=== PATIENT | female | born 1935 | race Caucasian/White ===

== ENCOUNTER → 2016-10-25 | Outpatient (CLI) | payer MEDICARE ==
[2016-10-25 14:38] LABS: BLOOD GAS BASE EXCESS 12.2 mmol/L (-2-2); BLOOD GAS CARBOXYHEMOGLOBIN 1.3 % (0-4); BLOOD GAS HCO3 38 mmol/L (22-26); BLOOD GAS METHEMOGLOBIN 1.3 % (0-2); BLOOD GAS O2 HGB SATURATION 91 % (90-100); BLOOD GAS OXYGEN CONTENT 14.3 Vol % (12.0-20.0); BLOOD GAS PCO2 73 mmHg (38-42); BLOOD GAS PO2 72 mmHg (61-120); BLOOD GAS TOTAL HGB 11.2 G/DL (12.0-16.0); CRITICAL VALUE YES; DRAW SITE LT RADIAL; LITER FLOW 4 L/M; OXYGEN DEVICE NASAL CANNULA; TEMP CORR TO 98.6
[2016-10-25 14:39] LABS: NUMBER OF ARTERIAL PUNCTURES 1; STAT NO; ULNAR PULSE PRESENT
[2016-10-25 15:16] LABS: BASOPHIL % 0.3 % (0.0-2.0); EOSINOPHIL # 0.1 TH/MM3 (0-0.4); EOSINOPHIL % 1.1 % (0.0-4.0); HEMATOCRIT 36.2 % (35.0-46.0); HEMO FLAGS DIFF FINAL; LYMPH % 10.6 % (9.0-44.0); LYMPHOCYTE # 0.8 TH/MM3 (1.0-4.8); MEAN CELL VOLUME 89.7 FL (80.0-100.0); MEAN CORPUSCULAR HEMOGLOBIN 28.7 PG (27.0-34.0); MONO % 7.8 % (0.0-8.0); NEUT % 80.2 % (16.0-70.0); PLATELET COUNT 270 TH/MM3 (150-450); RED BLOOD COUNT 4.03 MIL/MM3 (4.00-5.30); RED CELL DISTRIBUTION WIDTH 14.3 % (11.6-17.2); WHITE BLOOD COUNT 7.5 TH/MM3 (4.0-11.0)
== END ==
LOC: HRSP 14:05
PROVIDERS: ATTEND Internal Medicine
DX: J84.81 Lymphangioleiomyomatosis (principal)
CPT/HCPCS: 36415; 36600; 82805; 85025

== ENCOUNTER 2017-05-30 16:59 | Inpatient (IN) | payer MEDICARE ==
[2017-05-30 17:01] VITALS: BP 156/72; PULSE 85; RESP 16; TEMP 97.7; O2SAT 94
[2017-05-30 17:51] VITALS: O2SAT 96
--- NOTE | 2017-05-30 17:54 | RADRPT ---
EXAM DATE/TIME: 05/30/2017 17:35 [facility] COMPARISON: No previous studies available for comparison. INDICATIONS : Short of breath, leg swelling. MEDICAL HISTORY : None. SURGICAL HISTORY : Arterial surgery. ENCOUNTER: Initial ACUITY: 4 - 6 days PAIN SCORE: 0/10 LOCATION: Bilateral chest FINDINGS: A single view of the chest demonstrates bilateral COPD with findings of pulmonary fibrosis right grea ter than left. Bilateral pleural effusions again, right greater than left. Heart size is normal. Dext rorotoscoliosis of the lumbar spine. CONCLUSION: 1. Plain film findings of COPD with scarring/fibrosis. 2. In addition, bibasilar airspace disease with associated effusions. Findings could represent vascul ar congestion/volume overload versus infiltrate. Don Barajas MD on May 30, 2017 at 17:50 Board Certified Radiologist. This report was verified electronically.
[2017-05-30] MEDS ORDERED: LEVOFLOXACIN 500 MG PREMIX INJ 100 ML IV ONE (18:15)
--- NOTE | 2017-05-30 18:16 | RADRPT ---
EXAM DATE/TIME: 05/30/2017 18:04 [facility] COMPARISON: No previous studies available for comparison. INDICATIONS : Increasing shortness of breath for four days RADIATION DOSE: 35.70 CTDIvol (mGy) MEDICAL HISTORY : Chronic obstructive pulmonary disease. A fib SURGICAL HISTORY : None. ENCOUNTER: Initial ACUITY: 1 day PAIN SCALE: 0/10 LOCATION: cranial TECHNIQUE: Multiple contiguous axial images were obtained of the head. Using automated exposure control and adj ustment of the mA and/or kV according to patient size, radiation dose was kept as low as reasonably a chievable to obtain optimal diagnostic quality images. DICOM format image data is available electro nically for review and comparison. FINDINGS: CEREBRUM: There is a 1.7 cm calcified meningioma in the right frontal region medially. No significant mass effe ct. POSTERIOR FOSSA: The cerebellum and brainstem are intact. The 4th ventricle is midline. The cerebellopontine angle i s unremarkable. EXTRACRANIAL: The visualized portion of the orbits is intact. SKULL: The calvaria is intact. No evidence of skull fracture. CONCLUSION: 1. 1.7 cm meningioma in the right frontal region without significant mass effect. Otherwise no acute intracranial abnormality. Jamal Chan MD on May 30, 2017 at 18:11 Board Certified Radiologist. This report was verified electronically.
[2017-05-30] MEDS ORDERED: FLEC1TAB8 PO (18:25)
[2017-05-30] MEDS ORDERED: ENAL5TAB98 PO (18:25)
[2017-05-30] MEDS ORDERED: PANT20 PO (18:25)
[2017-05-30] MEDS ORDERED: ZOCO10TA PO (18:25)
[2017-05-30] MEDS ORDERED: AMOX500C PO (18:25)
[2017-05-30] MEDS ORDERED: APIX2.5T PO (18:25)
[2017-05-30] MEDS ORDERED: ALPR.25 PO (18:25)
[2017-05-30] MEDS ORDERED: AMLO5 PO (18:25)
[2017-05-30 19:00] LABS: PROTHROMBIN TIME - PATIENT 9.8 SEC (9.8-11.6)
[2017-05-30 19:02] LABS: AUTOMATED NEUTROPHIL # 5.6 TH/MM3 (1.8-7.7); BASOPHIL % 0.3 % (0.0-2.0); EOSINOPHIL # 0.1 TH/MM3 (0-0.4); HEMATOCRIT 35.3 % (35.0-46.0); HEMOGLOBIN 11.6 GM/DL (11.6-15.3); LYMPH % 10.8 % (9.0-44.0); LYMPHOCYTE # 0.7 TH/MM3 (1.0-4.8); MEAN CELL VOLUME 88.4 FL (80.0-100.0); MEAN CORPUSCULAR HEMOGLOBIN 28.9 PG (27.0-34.0); MEAN CORPUSCULAR HGB CONC 32.7 % (32.0-36.0); MEAN PLATELET VOLUME 8.7 FL (7.0-11.0); MONOCYTE # 0.5 TH/MM3 (0-0.9); NEUT % 80.9 % (16.0-70.0); PLATELET COUNT 246 TH/MM3 (150-450); RED CELL DISTRIBUTION WIDTH 13.3 % (11.6-17.2); WHITE BLOOD COUNT 6.9 TH/MM3 (4.0-11.0)
[2017-05-30 19:06] LABS: ALBUMIN 3.6 GM/DL (3.4-5.0); ALT (GPT) 32 U/L (10-53); AST (GOT) 27 U/L (15-37); BICARBONATE 41.5 MEQ/L (21.0-32.0); BLOOD UREA NITROGEN 14 MG/DL (7-18); CALCIUM 8.7 MG/DL (8.5-10.1); CHLORIDE 80 MEQ/L (98-107); GLOMERULAR FILTRATION RATE 214 ML/MIN (>89); GLUCOSE,RANDOM 101 MG/DL (74-106); SODIUM (NA) 125 MEQ/L (136-145)
[2017-05-30 19:10] LABS: ALKALINE PHOSPHATASE 74 U/L (45-117); TOTAL BILIRUBIN ADULT 0.4 MG/DL (0.2-1.0); TOTAL PROTEIN 6.7 GM/DL (6.4-8.2); TROPONIN I LESS THAN 0.02 NG/ML (0.02-0.05)
--- NOTE | 2017-05-30 19:15 | PD ---
Physical Exam Date Seen by Provider: May 30, 2017 Time Seen by Provider: 18:00 Narrative I, Dr. Moss, have reviewed the advance practice practitioner's documentation and am in agreement, met with the patient face to face, made the diagnosis, and the medical decision making was done by me. *My assessment and Findings: Patient seen and evaluated with PA, please see PA note for further details. Here with worsening in shortness of breath, sent in by her physician. She denies any fevers or other issues. Pulmonary exam shows decreased breath sounds throughout. Laboratory Tests Test 05/30/17 17:59 05/30/17 18:23 Blood Gas HCO3 43 mmol/L (22-26) Blood Gas Base Excess 15.7 mmol/L (-2-2) Arterial Blood pH 7.31 (7.380-7.420) Arterial Blood Partial Pressure CO2 87 mmHg (38-42) Blood Gas Hemoglobin 11.2 G/DL (12.0-16.0) Neutrophils (%) (Auto) 80.9 % (16.0-70.0) Lymphocytes # (Auto) 0.7 TH/MM3 (1.0-4.8) Creatinine 0.30 MG/DL (0.50-1.00) Sodium Level 125 MEQ/L (136-145) Chloride Level 80 MEQ/L (98-107) Carbon Dioxide Level 41.5 MEQ/L (21.0-32.0) Anion Gap 4 MEQ/L (5-15) Last [address] 05/30/17 1723 Signed Impressions: Service Date/Time: Tuesday, May 30, 2017 18:04 - CONCLUSION: 1. 1.7 cm meningioma in the right frontal region without significant mass effect. Otherwise no acute intracranial abnormality. Jamal Chan MD Chest X-Ray 05/30/17 1723 Signed Impressions: Service Date/Time: Tuesday, May 30, 2017 17:35 - CONCLUSION: 1. Plain film findings of COPD with scarring/fibrosis. 2. In addition, bibasilar airspace disease with associated effusions. Findings could represent vascular congestion/volume overload versus infiltrate. Don Barajas MD Chest x-ray shows COPD with fibrosis and basilar pleural effusions. ABG shows respiratory acidosis which is fairly compensated. PH is normal. Patient is mentating normally in the ER. At this point, I am awaiting further lab work planning on admitting the patient for further evaluation of her worsening shortness of breath. Data Data Last Documented VS Vital Signs Date Time Temp Pulse Resp B/P (MAP) Pulse Ox O2 Delivery O2 Flow Rate FiO2 05/30/17 17:51 96 Nasal Cannula 5.00 05/30/17 17:01 97.7 85 16 Orders Orders Electrocardiogram (05/30/17:23) Complete Blood Count With Diff (05/30/17:23) Comprehensive Metabolic Panel (05/30/17:) Ckmb (Isoenzyme) Profile (05/30/17:) Troponin I (05/30/17:) Prothrombin Time / Inr (Pt) (05/30/17) Act Partial Throm Time (Ptt) (05/30/17:23) Blood Culture (05/30/17:23) Magnesium (Mg) (05/30/17:23) Chest, Single Ap (05/30/17:23) Ct Brain W/O Iv Contrast(Rout) (05/30/17 17:23) Iv Access Insert/Monitor (05/30/17:23) Ecg Monitoring (05/30/17:23) Oximetry (05/30/17:23) B-Type Natriuretic Peptide (05/30/17 17:32) Arterial Blood Gas (Abg) (05/30/17 ) Levofloxacin 500 Mg Premix Inj (Levaquin (05/30/17 18:15) Sputum Culture And Gram Stain (05/30/17 18:37) Labs Laboratory Tests Test 05/30/17 17:59 05/30/17 18:23 Blood Gas Puncture Site RT RADIAL Blood Gas Patient Temperature 98.6 Blood Gas HCO3 43 mmol/L Blood Gas Base Excess 15.7 mmol/L Blood Gas Oxygen Saturation 93 % Arterial Blood pH 7.31 Arterial Blood Partial Pressure CO2 87 mmHg Arterial Blood Partial Pressure O2 72 mmHG Arterial Blood Oxygen Content 14.7 Vol % Arterial Blood Carboxyhemoglobin 1.2 % Arterial Blood Methemoglobin 0.6 % Blood Gas Hemoglobin 11.2 G/DL Oxygen Delivery Device NASAL CANNULA Blood Gas Liter Flow 3 L/M White Blood Count 6.9 TH/MM3 Red Blood Count 4.00 MIL/MM3 Hemoglobin 11.6 GM/DL Hematocrit 35.3 % Mean Corpuscular Volume 88.4 FL Mean Corpuscular Hemoglobin 28.9 PG Mean Corpuscular Hemoglobin Concent 32.7 % Red Cell Distribution Width 13.3 % Platelet Count 246 TH/MM3 Mean Platelet Volume 8.7 FL Neutrophils (%) (Auto) 80.9 % Lymphocytes (%) (Auto) 10.8 % Monocytes (%) (Auto) 7.0 % Eosinophils (%) (Auto) 1.0 % Basophils (%) (Auto) 0.3 % Neutrophils # (Auto) 5.6 TH/MM3 Lymphocytes # (Auto) 0.7 TH/MM3 Monocytes # (Auto) 0.5 TH/MM3 Eosinophils # (Auto) 0.1 TH/MM3 Basophils # (Auto) 0.0 TH/MM3 CBC Comment DIFF FINAL Differential Comment Prothrombin Time 9.8 SEC Prothromb Time International Ratio 1.0 RATIO Activated Partial Thromboplast Time 24.7 SEC Blood Urea Nitrogen 14 MG/DL Creatinine 0.30 MG/DL Random Glucose 101 MG/DL Albumin 3.6 GM/DL Calcium Level 8.7 MG/DL Magnesium Level 2.0 MG/DL Aspartate Amino Transf (AST/SGOT) 27 U/L Alanine Aminotransferase (ALT/SGPT) 32 U/L Sodium Level 125 MEQ/L Potassium Level 4.4 MEQ/L Chloride Level 80 MEQ/L Carbon Dioxide Level 41.5 MEQ/L Anion Gap 4 MEQ/L Estimat Glomerular Filtration Rate 214 ML/MIN [facility] Medical Record Reviewed: Yes Supervised Visit with MARLO: Yes Diagnosis Primary Impression: Shortness of breath Admitting Information Admitting Physician Requests: it Ilya Moss MD May 30, 2017 19:15
[2017-05-30 19:18] VITALS: BP 155/72; PULSE 95; RESP 24; O2SAT 95; O2SAT 96
--- NOTE | 2017-05-30 19:37 | PD ---
HPI Chief Complaint: Respiratory Symptoms Time Seen by Provider: 17:11 Travel History International Travel<30 days: No Contact w/Intl Traveler<30days: No Traveled to known affect area: No History of Present Illness HPI 82-year-old female that presents to the ED for evaluation of shortness of breath. The patient has a history of COPD as well as TRAN disease. Per patient she's been having this disease for about 20 years and she's been worked up in multiple hospitals for this with unfortunately no ways to fix it ordered and ultimately getting a lung transplant per the report that they're given me. Patient is on 5 L of oxygen at home. Patient follows with Dr. Dobbins the ethnoarchaeology professor here in the area and was seen on Tuesday for evaluation of increased shortness of breath and at the time he started her on amoxicillin. Patient was told that if the symptoms worsen to call back. Patient called back Dr. Dobbins today because she was not feeling better and was feeling more short of breath and Dr. Dobbins wanted her to come here to get evaluated. Patient denies any fevers chills or sweats. States having some cough and shortness of breath with exertion. She also states having swelling to her lower legs. She denies having anything like this before. Denies any urinary or bowel movement issues. She does take liquids chronically for A. fib. She states that she's been also having some blurry vision and problems with her vision on and off but has been progressively gotten worse the past couple of days. She states compliance with her medications. No other medical issues. PFSH Past Medical History Hx Anticoagulant Therapy: Yes (ELOQUIS) Atrial Fibrillation: Yes Cardiovascular Problems: Yes (AFIB) Gastrointestinal Disorders: Yes (esophageal stricture) Respiratory: Yes (Lymphandioleimyomatosis) Tetanus Vaccination: < 5 Years Influenza Vaccination: Yes Past Surgical History Appendectomy: Yes Body Medical Devices: coil Hysterectomy: Yes Tonsillectomy: Yes Other Surgery: Yes (pluradesis x2, coil in abd cavity (experimental)) Social History Alcohol Use: Yes (moderately) Tobacco Use: No Substance Use: No Allergies-Medications (Allergen,Severity, Reaction): Coded Allergies: No Known Drug Allergies (Verified Allergy, Unknown, 05/30/17) Reported Meds & Prescriptions Reported Meds & Active Scripts Active Reported Protonix (Pantoprazole Sodium) Unknown Strength Tab 1 Tab PO BID Amoxicillin 500 Mg Cap 500 Mg PO TID Xanax (Alprazolam) 0.25 Mg Tab 0.25 Mg PO Q8H PRN Vasotec (Enalapril Maleate) 5 Mg Tab 5 Mg PO BID Norvasc (Amlodipine Besylate) 5 Mg Tab 5 Mg PO DAILY Flecainide (Flecainide Acetate) 50 Mg Tab 50 Mg PO BID Zocor (Simvastatin) 10 Mg Tab 10 Mg PO HS Eliquis (Apixaban) 2.5 Mg Tab 2.5 Mg PO BID Review of Systems Except as stated in HPI: all other systems reviewed are Neg Physical Exam Narrative GENERAL: SKIN: Warm and dry. HEAD: Atraumatic. Normocephalic. EYES: Pupils equal and round. No scleral icterus. No injection or drainage. ENT: No nasal bleeding or discharge. Mucous membranes pink and moist. Tongue is midline. No uvula deviation. NECK: Trachea midline. No JVD. CARDIOVASCULAR: Regular rate and rhythm. No murmurs, S3, S4 RESPIRATORY: No accessory muscle use. Rales heard in all lower lung bang. Breath sounds equal bilaterally. GASTROINTESTINAL: Abdomen soft, non-tender, nondistended. Hepatic and splenic margins not palpable. MUSCULOSKELETAL: Extremities without clubbing, cyanosis, or edema. No obvious deformities. Full range of motion of the upper and lower extremities bilaterally. 2+ pulses bilaterally. NEUROLOGICAL: Awake and alert. No obvious cranial nerve deficits. Motor grossly within normal limits. Five out of 5 muscle strength in the arms and legs. Normal speech. PSYCHIATRIC: Appropriate mood and affect; insight and judgment normal. Data Data Last Documented VS Vital Signs Date Time Temp Pulse Resp B/P (MAP) Pulse Ox O2 Delivery O2 Flow Rate FiO2 05/30/17 19:18 95 24 155/72 (99) 96 Nasal Cannula 5.00 05/30/17 17:01 97.7 Orders Orders Electrocardiogram (05/30/17:) Complete Blood Count With Diff (05/30/17 17:) Comprehensive Metabolic Panel (05/30/17 17:) Ckmb (Isoenzyme) Profile (05/30/17 17:) Troponin I (05/30/17 17:) Prothrombin Time / Inr (Pt) (05/30/17 17:) Act Partial Throm Time (Ptt) (05/30/17 17:23) Blood Culture (05/30/17 17:23) Magnesium (Mg) (05/30/17 17:23) Chest, Single Ap (05/30/17 17:23) Ct Brain W/O Iv Contrast(Rout) (05/30/17 17:23) Iv Access Insert/Monitor (05/30/17 17:23) Ecg Monitoring (05/30/17 17:23) Oximetry (05/30/17 17:23) B-Type Natriuretic Peptide (05/30/17 17:32) Arterial Blood Gas (Abg) (05/30/17 ) Levofloxacin 500 Mg Premix Inj (Levaquin (05/30/17 18:15) Sputum Culture And Gram Stain (05/30/17 18:37) Place In Observation (05/30/17 ) Code Status (05/30/17 20:02) Vital Signs (Adult) [id number].Q4H (05/30/17 20:02) Activity Oob With Assistance (05/30/17 20:02) Diet Npo (05/31/17 Breakfast) Resp Oxygen Mj C Titrat 1-4 L (05/30/17 ) Sodium Chloride 0.9% Flush (Ns Flush) (05/30/17 20:15) Sodium Chloride 0.9% Flush (Ns Flush) (05/30/17 21:00) Admit Order (Ed Use Only) (05/30/17 20:18) Labs Laboratory Tests Test 05/30/17 17:59 05/30/17 18:23 Blood Gas Puncture Site RT RADIAL Blood Gas Patient Temperature 98.6 Blood Gas HCO3 43 mmol/L Blood Gas Base Excess 15.7 mmol/L Blood Gas Oxygen Saturation 93 % Arterial Blood pH 7.31 Arterial Blood Partial Pressure CO2 87 mmHg Arterial Blood Partial Pressure O2 72 mmHG Arterial Blood Oxygen Content 14.7 Vol % Arterial Blood Carboxyhemoglobin 1.2 % Arterial Blood Methemoglobin 0.6 % Blood Gas Hemoglobin 11.2 G/DL Oxygen Delivery Device NASAL CANNULA Blood Gas Liter Flow 3 L/M White Blood Count 6.9 TH/MM3 Red Blood Count 4.00 MIL/MM3 Hemoglobin 11.6 GM/DL Hematocrit 35.3 % Mean Corpuscular Volume 88.4 FL Mean Corpuscular Hemoglobin 28.9 PG Mean Corpuscular Hemoglobin Concent 32.7 % Red Cell Distribution Width 13.3 % Platelet Count 246 TH/MM3 Mean Platelet Volume 8.7 FL Neutrophils (%) (Auto) 80.9 % Lymphocytes (%) (Auto) 10.8 % Monocytes (%) (Auto) 7.0 % Eosinophils (%) (Auto) 1.0 % Basophils (%) (Auto) 0.3 % Neutrophils # (Auto) 5.6 TH/MM3 Lymphocytes # (Auto) 0.7 TH/MM3 Monocytes # (Auto) 0.5 TH/MM3 Eosinophils # (Auto) 0.1 TH/MM3 Basophils # (Auto) 0.0 TH/MM3 CBC Comment DIFF FINAL Differential Comment Prothrombin Time 9.8 SEC Prothromb Time International Ratio 1.0 RATIO Activated Partial Thromboplast Time 24.7 SEC Blood Urea Nitrogen 14 MG/DL Creatinine 0.30 MG/DL Random Glucose 101 MG/DL Total Protein 6.7 GM/DL Albumin 3.6 GM/DL Calcium Level 8.7 MG/DL Magnesium Level 2.0 MG/DL Alkaline Phosphatase 74 U/L Aspartate Amino Transf (AST/SGOT) 27 U/L Alanine Aminotransferase (ALT/SGPT) 32 U/L Total Bilirubin 0.4 MG/DL Sodium Level 125 MEQ/L Potassium Level 4.4 MEQ/L Chloride Level 80 MEQ/L Carbon Dioxide Level 41.5 MEQ/L Anion Gap 4 MEQ/L Estimat Glomerular Filtration Rate 214 ML/MIN Total Creatine Kinase 38 U/L Troponin I LESS THAN 0.02 NG/ML MDM Medical Decision Making Medical Screen Exam Complete: Yes Emergency Medical Condition: Yes Medical Record Reviewed: Yes Interpretation(s) CBC & BMP Diagram 05/30/17 18:23 Total Protein 6.7, Albumin 3.6, Calcium Level 8.7, Magnesium Level 2.0, Alkaline Phosphatase 74, Aspartate Amino Transf (AST/SGOT) 27, Alanine Aminotransferase (ALT/SGPT) 32, Total Bilirubin 0.[address] 05/30/17 1723 Signed Impressions: Service Date/Time: Tuesday, May 30, 2017 18:04 - CONCLUSION: 1. 1.7 cm meningioma in the right frontal region without significant mass effect. Otherwise no acute intracranial abnormality. Jamal Chan MD Chest X-Ray 05/30/17 1723 Signed Impressions: Service Date/Time: Tuesday, May 30, 2017 17:35 - CONCLUSION: 1. Plain film findings of COPD with scarring/fibrosis. 2. In addition, bibasilar airspace disease with associated effusions. Findings could represent vascular congestion/volume overload versus infiltrate. Don Barajas MD Differential Diagnosis Pneumonia versus COPD versus TRAN versus failed outpatient treatment Narrative Course 82-year-old female that presents to the ED for evaluation of shortness of breath. Patient was properly examined and was found to have signs and symptoms concerning for possible infectious etiology. Patient does have significant history of autoimmune disorder causing significant lung disease that she's had for about 20 years. She follows with her ethnoarchaeology professor recommended she comes here as she is not better after taking antibiotics. I was unable to get Dr. Dobbins called me back to see what he specifically wanted. Labs and imaging were done here and did show what appears to be possible consolidations the lower lung bang. Concerning for pneumonia as patient continues to have shortness of breath. Recommendation is patient has been taking amoxicillin is not getting better is for admission for further eval. Patient agrees with this plan. Case discussed with my attending who agrees with the same. Residents agreed to admission. Diagnosis Primary Impression: Pneumonia Qualified Codes: J18.9 - Pneumonia, unspecified organism Additional Impression: Shortness of breath Admitting Information Admitting Physician Requests: Admit Ted Mendez May 30, 2017 19:37
[2017-05-30] MEDS ORDERED: SODIUM CHLORIDE 0.9% FLUSH 10 ML FLUSH IV FLUSH PRN ×2 (20:15→21:15)
--- NOTE | 2017-05-30 20:26 | HHI.HP ---
[facility] Service Family Medicine Primary Care Physician Miguel Washington M.D. Admission Diagnosis pneumonia, failed outpatient treatment, TRAN disease Diagnoses: International Travel<30 Days: No Contact w/Intl Traveler<30days: No Known Affected Area: No History of Present Illness Patient is an 82-year-old female with past history of lymphangioleiomyomatosis, chylous effusions, A. fib, hypertension presenting today with shortness of breath. She states she saw her electrostatic paint operator Dr. royal 4 days prior to admission for shortness of breath, was prescribed amoxicillin and was told to contact him if there was no improvement over several days. Over this time she had shortness of breath, mild cough, some sputum production, dizziness, "eyes jumping around" described as unfocused vision or "shaky vision." There was no improvement, she contacted her electrostatic paint operator and he advised her to go to the ER. The patient states her shaky vision is typically present when her carbon dioxide becomes too high, which has happened in the past. No headache, diplopia , localized weakness. She states her TRAN typically is asymptomatic, however every now and then she has cold-like symptoms. Occasionally she states she coughs up something that looks like "wet popcorn." No blood in her sputum, purulent smell. She reports she's had insomnia for years, currently treated with Xanax at bedtime. Denies nausea, vomiting, fever, chills, abdominal pain, chest pain, arm/jaw pain. Reports she is typically on 4 L/min O2 during the day , 2-3 L/m at night. Review of Systems Constitutional: DENIES: Fatigue, Fever, Chills Endocrine: COMPLAINS OF: Polydipsia, DENIES: Polyuria Eyes: DENIES: Blurred vision, Diplopia, Eye inflammation, Eye pain, Vision loss , Photosensitivity, Double Vision Ears, nose, mouth, throat: COMPLAINS OF: Vertigo, Nasal discharge, Running Nose , DENIES: Tinnitus, Hearing loss, Throat pain, Hoarseness, Ear Pain, Epistaxis, Sinus Pain Respiratory: COMPLAINS OF: Cough, Sputum production, Shortness of breath, DENIES: Snoring, Wheezing, Hemoptysis Cardiovascular: DENIES: Chest pain, Palpitations, Syncope, Dyspnea on Exertion Gastrointestinal: DENIES: Abdominal pain, Black stools, Constipation, Diarrhea , Nausea, Vomiting Genitourinary: DENIES: Hematuria, Dysuria Musculoskeletal: COMPLAINS OF: Joint pain (Arthritis "everywhere"), Stiffness, DENIES: Muscle aches, Back pain, Neck pain Integumentary: DENIES: Abnormal pigmentation, Rash Hematologic/lymphatic: DENIES: Bruising, Lymphadenopathy Immunologic/allergic: DENIES: Eczema, Urticaria Neurologic: DENIES: Abnormal gait, Headache, Localized weakness, Paresthesias Psychiatric: DENIES: Anxiety, Suicidal Ideation, Homicidal Ideation Past Family Social History Past Medical History Afib TRAN GE stricture Meningioma anterior, frontal, 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 HTN HLD Past Surgical History Hysterectomy 1985 Pleurodesis of b/l lungs 1997 Coil in thoracic duct Allergies: Coded Allergies: No Known Drug Allergies (Verified Allergy, Unknown, 05/30/17) Family History Mother: at 63, liver and pancreas cancer Father: at 77, emphysema Daughter: healthy Social History EtOH: Occasionally Tobacco: none Drugs: None Flu, PNA vaccine in fall Physical Exam Vital Signs Vital Signs Date Time Temp Pulse Resp B/P (MAP) Pulse Ox O2 Delivery O2 Flow Rate FiO2 05/30/17 19:18 95 24 155/72 (99) 96 Nasal Cannula 5.00 05/30/17 17:51 96 Nasal Cannula 5.00 05/30/17 17:01 97.7 85 16 156/72 (100) 94 Nasal Cannula 4.00 Physical Exam GENERAL: This is a well-nourished, well-developed patient, in no apparent distress. SKIN: No rashes, ecchymoses or lesions. Cool and dry. HEAD: Atraumatic. Normocephalic. No temporal or scalp tenderness. EYES: Pupils equal round and reactive. Extraocular motions intact. No scleral icterus. No injection or drainage. ENT: Nose without bleeding, purulent drainage or septal hematoma. Throat without erythema, tonsillar hypertrophy or exudate. Uvula midline. Airway patent. NECK: Trachea midline. No JVD or lymphadenopathy. Supple, nontender, no meningeal signs. CARDIOVASCULAR: Regular rate and rhythm without murmurs, gallops, or rubs. RESPIRATORY: Breath sounds equal bilaterally. No wheezes, or rhonchi. Crackles in bases. Dullness to percussion at bases. GASTROINTESTINAL: Abdomen soft, non-tender, nondistended. No hepato-splenomegaly , or palpable masses. No guarding. MUSCULOSKELETAL: Extremities without clubbing, cyanosis. Pedal Swelling. No joint tenderness, effusion, or edema noted. No calf tenderness. NEUROLOGICAL: Awake and alert. Cranial nerves II through XII intact. Motor and sensory grossly within normal limits. Five out of 5 muscle strength in all muscle groups. Normal speech. Laboratory Laboratory Tests Test 05/30/17 17:59 05/30/17 18:23 Blood Gas Puncture Site RT RADIAL Blood Gas Patient Temperature 98.6 Blood Gas HCO3 43 Blood Gas Base Excess 15.7 Blood Gas Oxygen Saturation 93 Arterial Blood pH 7.31 Arterial Blood Partial Pressure CO2 87 Arterial Blood Partial Pressure O2 72 Arterial Blood Oxygen Content 14.7 Arterial Blood Carboxyhemoglobin 1.2 Arterial Blood Methemoglobin 0.6 Blood Gas Hemoglobin 11.2 Oxygen Delivery Device NASAL CANNULA Blood Gas Liter Flow 3 White Blood Count 6.9 Red Blood Count 4.00 Hemoglobin 11.6 Hematocrit 35.3 Mean Corpuscular Volume 88.4 Mean Corpuscular Hemoglobin 28.9 Mean Corpuscular Hemoglobin Concent 32.7 Red Cell Distribution Width 13.3 Platelet Count 246 Mean Platelet Volume 8.7 Neutrophils (%) (Auto) 80.9 Lymphocytes (%) (Auto) 10.8 Monocytes (%) (Auto) 7.0 Eosinophils (%) (Auto) 1.0 Basophils (%) (Auto) 0.3 Neutrophils # (Auto) 5.6 Lymphocytes # (Auto) 0.7 Monocytes # (Auto) 0.5 Eosinophils # (Auto) 0.1 Basophils # (Auto) 0.0 CBC Comment DIFF FINAL Differential Comment Prothrombin Time 9.8 Prothromb Time International Ratio 1.0 Activated Partial Thromboplast Time 24.7 Blood Urea Nitrogen 14 Creatinine 0.30 Random Glucose 101 Total Protein 6.7 Albumin 3.6 Calcium Level 8.7 Magnesium Level 2.0 Alkaline Phosphatase 74 Aspartate Amino Transf (AST/SGOT) 27 Alanine Aminotransferase (ALT/SGPT) 32 Total Bilirubin 0.4 Sodium Level 125 Potassium Level 4.4 Chloride Level 80 Carbon Dioxide Level 41.5 Anion Gap 4 Estimat Glomerular Filtration Rate 214 Total Creatine Kinase 38 Troponin I LESS THAN 0.02 Date/Time Source Procedure Growth Status 05/30/17 18:28 Blood Peripheral Aerobic Blood Culture Pending Received 05/30/17 18:28 Blood Peripheral Anaerobic Blood Culture Pending Received Result Diagram: 05/30/17 1823 05/30/17 1823 Imaging Last Impressions Head CT 05/30/17 172 Signed Impressions: Service Date/Time: Tuesday, May 30, 2017 18:04 - CONCLUSION: 1. 1.7 cm meningioma in the right frontal region without significant mass effect. Otherwise no acute intracranial abnormality. Jamal Chan MD Chest X-Ray 05/30/171722 Signed Impressions: Service Date/Time: Tuesday, May 30, 2017 17:35 - CONCLUSION: 1. Plain film findings of COPD with scarring/fibrosis. 2. In addition, bibasilar airspace disease with associated effusions. Findings could represent vascular congestion/volume overload versus infiltrate. Don Barajas MD [place] VTE Risk Assessment Caprini VTE Risk Assessment: Mod/High Risk (score >= 2) VTE Pharm Contraindication: on home anticoagulation Assessment and Plan Assessment and Plan Patient is an 82-year-old female with past history of lymphangioleiomyomatosis, chylous effusions, A. fib, hypertension who presented with shortness of breath. Hyponatremia, airspace disease noted on chest x-ray above. Problem List: (1) Pneumonia ICD Codes: J18.9 - Pneumonia, unspecified organism Status: Acute Plan: 82-year-old female with past history of lymphangioleiomyomatosis, chylous effusions, A. fib, hypertension who presented with shortness of breath. Patient seen her electrostatic paint operator and was prescribed amoxicillin 4 days prior to admission, had not improved over that time and was advised by her pulmonary disease to go to the ED. At this time difficult to rule out pneumonia due to patient's rare pulmonary disorder. Has not been the hospital or a penitentiary the past couple months. Patient reports she's on BiPAP at home. Further reports her O2 saturation is typically in the low 90s to high 80s. We will be bringing in her own home BiPAP and using it settings. -Follow up blood culture, sputum culture -Rocephin 1000 mg every 2-4 hours -Zithromax and 500 mg by mouth daily -BiPAP per home settings -Follow up recommendations from patient's electrostatic paint operator, Dr. royal (2) Hyponatremia ICD Codes: E87.1 - Hypo-osmolality and hyponatremia Plan: Hyponatremia 125. Appears euvolemic. Pedal swelling. CXR with findings that could represent vascular congestion. -50 ml 3% NS bolus -F/U BMP following bolus -F/U UA/osmolality/sodium (3) Afib ICD Codes: I48.91 - Unspecified atrial fibrillation Plan: History of A. fib, reports currently well-controlled -Continue home medications -Flecainide 50 mg by mouth twice a day -Eliquis 2.5 mg by mouth twice a day (4) Hypertension ICD Codes: I10 - Essential (primary) hypertension Plan: History of hypertension -Continue home medications enalapril 5 mg by mouth twice a day, Norvasc 5 mg by mouth daily (5) HLD (hyperlipidemia) ICD Codes: E78.5 - Hyperlipidemia, unspecified Plan: Continue home medication -pravastatin 20 mg hs (6) FEN Plan: Fluids: -Tolerating PO Electrolytes: -Hyponatremia plan above, monitor and replete electrolytes as needed Nutrition: -Regular Diet PPX Currently on [facility] Physician Certification 2 Midnight Certification Type: Admission for Inpatient Services Order for Inpatient Services The services are ordered in accordance with Medicare regulations or non- Medicare payer requirements, as applicable. In the case of services not specified as inpatient-only, they are appropriately provided as inpatient services in accordance with the 2-midnight benchmark. Estimated LOS (days): 2 2 days is the estimated time the patient will need to remain in the hospital, assuming treatment plan goals are met and no additional complications. Post-Hospital Plan: Home Problem Qualifiers (1) Pneumonia: Qualified Codes: J18.9 - Pneumonia, unspecified organism Milton Bella MD R1 May 30, 2017 20:26
[2017-05-30] MEDS ORDERED: SODIUM CHLORIDE 0.9% FLUSH 10 ML FLUSH IV FLUSH SCH (21:00)
[2017-05-30] MEDS ORDERED: ONDANSETRON HCL 4 MG/2 ML VIAL IV PUSH PRN (21:15)
[2017-05-30 21:30] VITALS: O2SAT 96
[2017-05-30] MEDS: cefTRIAXone INJ 1,000 MG in SODIUM CHLORIDE 0.9% INJ 100 ML IV SCH (22:07)
[2017-05-30] MEDS ORDERED: TEMAZEPAM 15 MG CAP PO PRN (22:30)
[2017-05-31] VITALS (7 sets, daily range): BP systolic 116–152; BP diastolic 57–75; PULSE 90–97; RESP 18–20; TEMP 97.4–98.5; O2SAT 94–99
[2017-05-31] MEDS ORDERED: [UNRECOGNIZED DRUG - OTHER] IV ONE (00:15)
[2017-05-31 01:59] LABS: HEMATOCRIT 35.6 % (35.0-46.0); HEMOGLOBIN 11.7 GM/DL (11.6-15.3); MEAN CORPUSCULAR HEMOGLOBIN 29.2 PG (27.0-34.0); MEAN CORPUSCULAR HGB CONC 32.8 % (32.0-36.0); MEAN PLATELET VOLUME 8.3 FL (7.0-11.0); PLATELET COUNT 272 TH/MM3 (150-450); RED CELL DISTRIBUTION WIDTH 13.3 % (11.6-17.2); WHITE BLOOD COUNT 7.5 TH/MM3 (4.0-11.0)
[2017-05-31 02:21] LABS: BICARBONATE 43.3 MEQ/L (21.0-32.0); CALCIUM 8.7 MG/DL (8.5-10.1); CREATININE 0.25 MG/DL (0.50-1.00)
--- NOTE | 2017-05-31 07:26 | HHI.FPPN ---
Subjective Remarks Ines Arroyo is an 82yo lady with medical history complicated by lymphangioleiomyomatosis and chylous effusions admitted for worsening SOB. She had been treated as an outpatient with amoxicillin x 4 days but continued to worsen. For further details, please see resident H&P dated 05/30/17. Overnight, she has required up to 5lpm by nasal cannula; she uses oxygen and BiPAP at home. This morning, she feels her breathing is about the same as last night. She denies any new concerns. ROS: Per resident H&P dated 05/30/17. +SOB, +cough. + vision changes (improving) . No fevers. All other systems reviewed are negative. PMH/PSxH/SocHx/FamHx: Per resident H&P dated 05/30/17. Significant for: lymphangioleiomyomatosis and chylous effusions; a fib, HTN, hyperlipidemia, and known meningioma. H/O pleurodesis of both lungs in 1997. Mother with liver and pancreatic CA; father from emphysema. No tobacco or recreational drug use. Objective Vitals Vital Signs Date Time Temp Pulse Resp B/P (MAP) Pulse Ox O2 Delivery O2 Flow Rate FiO2 05/31/17 05:22 97.4 92 18 152/72 (98) 97 05/31/17 01:30 96 Nasal Cannula 3.00 Bi-Pap 05/31/17 01:25 97.8 96 18 149/75 (99) 94 05/31/17 01:18 96 Nasal Cannula 3.00 Bi-Pap 05/30/17 23:41 95 Nasal Cannula 3.00 Bi-Pap 05/30/17 22:56 05/30/17 21:30 96 Nasal Cannula 4.50 05/30/17 19:18 95 24 155/72 (99) 96 Nasal Cannula 5.00 05/30/17 17:51 96 Nasal Cannula 5.00 05/30/17 17:01 97.7 85 16 156/72 (100) 94 Nasal Cannula 4.00 I/O 05/30/17 05/30/17 05/30/17 05/31/17 05/31/17 05/31/17 07:00 15:00 23:00 07:00 15:00 23:00 Intake Total 320 ml Balance 320 ml Intake Oral 320 ml Result Diagram: 05/31/17 0141 05/31/17 0141 Objective Remarks Per resident H&P dated 05/30/17. Significant for: Crackles at bases. Talks in complete sentences. A/P Assessment and Plan 82yo lady with complicated medical history admitted for pneumonia, having FAILED OUTPATIENT TREATMENT with amoxicillin. Discharge Planning Anticipate discharge in 1-2 days, pending improvement in respiratory status, especially pCO2. Attending Attestation The patient has been seen and examined. The chart and all resident notes have been reviewed. I agree that inpatient care is appropriate and that a two midnight stay is expected for the reasons documented in the resident history and physical. I have discussed this with the resident and certify the resident s order for inpatient admission. Patient seen, examined, and discussed with resident team. Problem List: (1) Pneumonia ICD Codes: J18.9 - Pneumonia, unspecified organism Status: Acute Plan: Failed outpatient treatment with amoxicillin. Will continue coverage for community acquired pneumonia, with Rocephin and azithromycin as started at admission. Continue home BiPAP, oxygen supplementation. Plan to recheck ABG, per pulmonology recs, in 1-2 days to ensure pt's pCO2 improves. Case discussed with Dr. Dobbins, patient's quality assurance technician. (2) Hyponatremia ICD Codes: E87.1 - Hypo-osmolality and hyponatremia Status: Acute Plan: Hyponatremia 125. Appears euvolemic. Pedal swelling. CXR with findings that could represent vascular congestion. -Received 50 ml 3% NS bolus at admission. -F/U BMP following bolus -F/U UA/osmolality/sodium. Consider dehydration vs SIADH vs other. Recheck BMP in the afternoon to ensure stability of sodium. 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 Appreciate further recs. Plan of care as above per pneumonia. (4) Afib ICD Codes: I48.91 - Unspecified atrial fibrillation Status: Chronic Plan: History of A. fib, reports currently well-controlled. -Continue home medications -Flecainide 50 mg by mouth twice a day -Eliquis 2.5 mg by mouth twice a day (5) Hypertension ICD Codes: I10 - Essential (primary) hypertension Status: Chronic Plan: -Continue home medications enalapril 5 mg by mouth twice a day, Norvasc 5 mg by mouth daily (6) HLD (hyperlipidemia) ICD Codes: E78.5 - Hyperlipidemia, unspecified Status: Chronic Plan: Continue home medication. -pravastatin 20 mg hs Problem Qualifiers (1) Pneumonia: Qualified Codes: J18.9 - Pneumonia, unspecified organism (2) Afib: Qualified Codes: I48.2 - Chronic atrial fibrillation (3) Hypertension: Qualified Codes: I10 - Essential (primary) hypertension (4) HLD (hyperlipidemia): Qualified Codes: E78.2 - Mixed hyperlipidemia Aaliyah Couch MD May 31, 2017 07:26
[2017-05-31] MEDS: APIXABAN 2.5 MG TABLET PO SCH ×2 (09:17→21:59)
[2017-05-31] MEDS: FLECAINIDE ACETATE 100 MG TAB PO SCH ×2 (09:17→21:58)
[2017-05-31] MEDS: ENALAPRIL MALEATE 5 MG TAB PO SCH ×2 (09:17→21:58)
[2017-05-31] MEDS: AZITHROMYCIN 250 MG TAB PO SCH (09:18)
[2017-05-31] MEDS: amLODIPine BESYLATE 5 MG TAB PO SCH (09:18)
[2017-05-31] MEDS: SODIUM CHLORIDE 0.9% FLUSH 10 ML FLUSH IV FLUSH SCH ×2 (09:19→21:59)
--- NOTE | 2017-05-31 11:37 | MB ---
cc: Arpita HICKEY DATE OF CONSULTATION: 05/31/2017 REASON FOR CONSULTATION: Miss Arroyo is a 82-year-old white female with a history of lymph angio leiomyoma ptosis (TRAN) I have followed her now since 1998 and she actually has a specialist at the [facility] as well. Dr. Ochoa. She has been remarkably stable over the last nearly 20 years. Prior to meeting me she had problems with recurrent chylous effusion. She had talc pleurodesis and those have not recurred. She also had plodding of her thoracic duct at some point. In any event she had a serious respiratory illness last year and was in [place] at that time was admitted to [facility]. Since then she has been stable but in a bit of a gradual decline. Her pulmonary functions have not been done routinely but the last FEV-1 was in 2013 at which time was 29%. She has also had very gradual rise in her CO2 last check was in December 2016 at which time a pCO2 was 65 with a pH of 7.37. Her pO2 on 3 liters 64 liters with 78. She was also seen at the [facility] recently in the pulmonary hypertension clinic by Dr. Garcia because her pulmonary artery pressures have been gradually rising. This is felt to be due to the underlying hypoxemia and chronic lung disease but she was thoroughly reviewed and was not recommended that she use any of the pulmonary hypertension drugs as they might only make things worse. She is on BiPap at night chronically for chronic respiratory failure with CO2 elevation and she uses oxygen continuously at about 4 liters. She has been on doxycycline every day or every other day for many years as a treatment for her Bui. She has also recently developed atrial fibrillation. She is on Eliquis and flecainide. No history of ischemic heart disease or congestive heart failure. I saw on the office on May 26 she was complaining of cough and congestion for a few weeks. She had been treated as an outpatient by her primary physician with antibiotics and felt a little better but not normal. I did a sputum culture put her on Amoxil and the sputum culture was normal ai but yesterday her called me and she was more confused. I suspected her CO2 might be rising and advised her to go to the emergency room. On presentation in the emergency room she was awake but a bit confused and initial blood gas on 3 liters her pO2 was 72 with a pH 7.31 and a pCO2 of 87. Chest x-ray revealed chronic changes at the bases could not rule out superimposed infiltrates because she has chronic scarring particularly at the right but she was admitted for acute on chronic respiratory failure and possible pneumonia. Additional past history pancreatitis pulmonary hypertension, new onset atrial fibrillation a distant history of hypertension and a meningioma which was also recognized on our CT scan on admission. ALLERGIES None. MEDICATIONS Reviewed in the EMR as an outpatient. She is on the medicines noted above, along with 1. Amlodipine p.r.n. 2. Xanax. 3. Simvastatin 4. Multiple vitamin. SOCIAL HISTORY She is living with , Jarad. Occasional social alcohol not to excess. Never smoked. He ran a [employer] store for years but is retired now. FAMILY HISTORY Father had COPD. Mother of liver cancer. No history of TRAN in the family. REVIEW OF SYSTEMS Review of systems other than that noted above she has had no nausea, vomiting, abdominal pain or change in bowel habits. No diarrhea. She has had some increased edema in her ankles which is new, no pain in her legs. No significant fever. No night sweats. PHYSICAL EXAMINATION: IN GENERAL: Physical exam she is awake and alert, looks exhausted 98 degrees 120/64, pulse 100 irregular, respirations 18-22, O2 sat 95% on 4 liters. HEAD, EYES, EARS, NOSE, AND THROAT: Sclerae anicteric. Mucous membranes are moist. NECK: Neck veins are flat. No palpable adenopathy in the neck. LUNGS: a few basilar rales. No moist congestion or rhonchi. No wheezes. HEART: Irregular rhythm about 100. EXTREMITIES: 1+ ankle edema bilateral. No calf tenderness. ASSESSMENT AND PLAN: Ines has had a recent URI with an exacerbation of her underlying chronic lung disease. CO2 was raising significantly from previous overweight use the BiPap continuously at present going to put her on Atrovent neb's to help clear any congestion and monitor her over the next 24-48 hours with a repeat blood gas to see if that CO2 is coming down. She has been started on Rocephin and Zithromax. I have asked the resident service to send another sputum and will check her labs. Further diagnostic and/or therapeutic depend on her ongoing clinical course and response to therapy. R. MD Leela Veras /9:20 AM /9:54 AM
[2017-05-31 13:50] LABS: BICARBONATE 42.1 MEQ/L (21.0-32.0); CALCIUM 8.3 MG/DL (8.5-10.1); CREATININE 0.29 MG/DL (0.50-1.00)
[2017-05-31 17:26] LABS: BACTERIA, URINE OCC /hpf; BILIRUBIN, URINE NEG (NEG); BLOOD, URINE MOD (NEG); GLUCOSE,URINE NEG (NEG); KETONE, URINE NEG (NEG); MUCUS URINE FEW /lpf (OCC); NITRITE,URINE NEG (NEG); SQUAMOUS EPITHELIAL CELL URINE 2 /hpf (0-5); URINE COLOR YELLOW (YELLW/STRAW); URINE LEUKOCYTE ESTERASE SMALL (NEG)
[2017-05-31 18:07] LABS: SODIUM,RANDOM URINE 30 MEQ/L
[2017-05-31 18:18] LABS: OSMOLALITY,URINE 500 MOSM/KG (300-1300)
--- NOTE | 2017-05-31 19:23 | EKG ---
Date Performed: 05/30/2017 Time Performed: 17:39:04 PTAGE: 82 years EKG: Sinus rhythm POSSIBLE LEFT ATRIAL ENLARGEMENT POSSIBLE LEFT VENTRICULAR HYPERTROPHY ABNORMAL ECG Since the prior tracing, there has been no significant change PREVIOUS TRACING : 08/14/2001 16.20 DOCTOR: Aristides Gao Interpretating Date/Time 05/31/2017 19:22:39
[2017-05-31] MEDS: RESP: IPRATROPIUM 0.5 MG/2.5 ML NEB NEB SCH (19:47)
[2017-05-31] MEDS: PRAVASTATIN SOD 20 MG TAB PO SCH (21:58)
[2017-05-31] MEDS: cefTRIAXone INJ 1,000 MG in SODIUM CHLORIDE 0.9% INJ 100 ML IV SCH (21:59)
[2017-06-01] VITALS (12 sets, daily range): BP systolic 114–132; BP diastolic 56–72; PULSE 79–97; RESP 18–25; TEMP 97.7–98.8; O2SAT 90–97
[2017-06-01] MEDS: RESP: IPRATROPIUM 0.5 MG/2.5 ML NEB NEB SCH ×3 (07:52→19:49)
[2017-06-01] MEDS: FLECAINIDE ACETATE 100 MG TAB PO SCH ×2 (09:44→20:26)
[2017-06-01] MEDS: AZITHROMYCIN 250 MG TAB PO SCH (09:45)
[2017-06-01] MEDS: amLODIPine BESYLATE 5 MG TAB PO SCH (09:45)
[2017-06-01] MEDS: ENALAPRIL MALEATE 5 MG TAB PO SCH ×2 (09:45→20:26)
[2017-06-01] MEDS: APIXABAN 2.5 MG TABLET PO SCH ×2 (09:46→20:30)
[2017-06-01] MEDS: SODIUM CHLORIDE 0.9% FLUSH 10 ML FLUSH IV FLUSH SCH ×2 (09:47→21:00)
--- NOTE | 2017-06-01 10:12 | HHI.FPPN ---
Subjective Remarks No acute events overnight. Patient states that her breathing is the same as yesterday. No increased work of breathing or increase in shortness of breath. Otherwise she has no complaints. ABG this morning showed an increase in PCO2, Dr. Dobbins was made aware and will give further recommendations this morning. (Vel Johnston MD R1) Objective Vitals Vital Signs Date Time Temp Pulse Resp B/P (MAP) Pulse Ox O2 Delivery O2 Flow Rate FiO2 06/01/17 07:49 97.7 96 20 118/59 (78) 95 06/01/17 04:03 96 Nasal Cannula 3.00 Bi-Pap 06/01/17 04:00 98.0 79 18 114/61 (78) 94 06/01/17 02:00 96 Nasal Cannula 3.00 Bi-Pap 06/01/17 00:00 96 Nasal Cannula 3.00 Bi-Pap 06/01/17 00:00 98.3 89 18 132/68 (89) 97 05/31/17 20:00 96 Nasal Cannula 3.00 Bi-Pap 05/31/17 20:00 98.0 97 18 146/70 (95) 97 05/31/17 16:43 97.8 97 20 116/57 (76) 96 05/31/17 12:26 98.5 94 20 140/64 (89) 99 I/O 05/31/17 05/31/17 05/31/17 06/01/17 06/01/17 06/01/17 07:00 15:00 23:00 07:00 15:00 23:00 # Voids 2 (Vel Johnston MD R1) Result Diagram: 05/31/17 0141 05/31/172012 Objective Remarks GENERAL: Well-nourished, well-developed patient sitting upright in bed with BiPAP mask, nasal cannula in place. Speaking in full sentences SKIN: Warm and dry. No rash. EYES: No scleral icterus. No injection or drainage. PERRLA. EOMI. HENT: Normocephalic. Atraumatic. MMM. NECK: No visible JVD or lymphadenopathy. CARDIOVASCULAR: Warm and well perfused. Grade 2-3 systolic murmur appreciated throughout. RESPIRATORY: Supraclavicular retractions appreciated. Coarse breath sounds appreciated in the bibasilar lung bang GASTROINTESTINAL: Abdomen nondistended, nontender. MUSCULOSKELETAL: Strength grossly WNL. BACK: Without obvious deformity. NEURO/PSYCH: Afocal. Awake, alert, and oriented x3. 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 Being treated with Rocephin and azithromycin. Pulmonology consulted. Patient on BiPAP Elevated PCO2 on initial ABG, continued to increase the morning of 06/01. Repeat ABG later this morning and Dr. Dobbins will give further recommendations on breathing treatments Discharge Planning Anticipate discharge in 1-2 days, pending improvement in respiratory status, especially pCO2. (Vel Johnston MD R1) Attending Attestation Patient seen and examined at 0730 on rounds; discussed with resident team. I agree with assessment and management as documented and discussed with me. Pt reports breathing is the same. She denies any vision changes. pCO2 is increased today - advised pt to wear BiPAP as much as possible. Appreciate Dr Dobbins. (Aaliyah Couch MD) Problem List: (1) Pneumonia ICD Codes: J18.9 - Pneumonia, unspecified organism Status: Acute Plan: Failed outpatient treatment with amoxicillin. Will continue coverage for community acquired pneumonia, with Rocephin and azithromycin as started at admission (05/31). Continue home BiPAP, oxygen supplementation at 3 L nasal cannula. Repeat ABG on the morning of 06/01 with elevated pCO2 (87 -> 101) Dr. Dobbins recommending repeat ABG later this morning, will give recommendations on breathing treatments pending this (2) Hyponatremia ICD Codes: E87.1 - Hypo-osmolality and hyponatremia Status: Acute Plan: Hyponatremia 125 on admission. Appears euvolemic. Pedal swelling. CXR with findings that could represent vascular congestion. Asymptomatic -Received 50 ml 3% NS bolus at admission. -Sodium improved to 127 after bolus, has been stable at 126-127 on 05/31 -Urine osmolality 500, urine sodium 30. -Follow up a.m. labs -Fluid restrictions to 1500 milliliter per day, will follow up BMP in the a.m. 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 Appreciate further recs. Plan of care as above per pneumonia. (4) Afib ICD Codes: I48.91 - Unspecified atrial fibrillation Status: Chronic Plan: History of A. fib, reports currently well-controlled. -Continue home medications -Flecainide 50 mg by mouth twice a day -Eliquis 2.5 mg by mouth twice a day (5) Hypertension ICD Codes: I10 - Essential (primary) hypertension Status: Chronic Plan: -Continue home medications enalapril 5 mg by mouth twice a day, Norvasc 5 mg by mouth daily (6) HLD (hyperlipidemia) ICD Codes: E78.5 - Hyperlipidemia, unspecified Status: Chronic Plan: Continue home medication. -pravastatin 20 mg hs (7) FEN Plan: No IV fluids at this time Regular diet with fluid restrictions of 1500 mL per day Hyponatremia as described above, will replete electrolytes as needed Eliquis 2.5 mg twice daily for DVT prophylaxis (Vel Johnston MD R1) Problem Qualifiers (1) Pneumonia: Qualified Codes: J18.9 - Pneumonia, unspecified organism (2) Afib: Qualified Codes: I48.2 - Chronic atrial fibrillation (3) Hypertension: Qualified Codes: I10 - Essential (primary) hypertension (4) HLD (hyperlipidemia): Qualified Codes: E78.2 - Mixed hyperlipidemia Vel Johnston MD R1 Jun 01, 2017 10:12 Aaliyah Couch MD Jun 01, 2017 20:22
[2017-06-01 10:17] LABS: AUTOMATED NEUTROPHIL # 13.2 TH/MM3 (1.8-7.7); BASOPHIL % 0.1 % (0.0-2.0); EOSINOPHIL % 0.3 % (0.0-4.0); HEMATOCRIT 33.2 % (35.0-46.0); HEMOGLOBIN 10.9 GM/DL (11.6-15.3); LYMPH % 5.2 % (9.0-44.0); LYMPHOCYTE # 0.8 TH/MM3 (1.0-4.8); MEAN CELL VOLUME 89.1 FL (80.0-100.0); MEAN CORPUSCULAR HEMOGLOBIN 29.1 PG (27.0-34.0); MEAN CORPUSCULAR HGB CONC 32.7 % (32.0-36.0); MEAN PLATELET VOLUME 8.7 FL (7.0-11.0); MONO % 4.7 % (0.0-8.0); MONOCYTE # 0.7 TH/MM3 (0-0.9); NEUT % 89.7 % (16.0-70.0); PLATELET COUNT 244 TH/MM3 (150-450); RED BLOOD COUNT 3.73 MIL/MM3 (4.00-5.30); RED CELL DISTRIBUTION WIDTH 13.7 % (11.6-17.2); WHITE BLOOD COUNT 14.7 TH/MM3 (4.0-11.0)
[2017-06-01 10:48] LABS: BICARBONATE 42.4 MEQ/L (21.0-32.0); CALCIUM 8.5 MG/DL (8.5-10.1); CREATININE 0.26 MG/DL (0.50-1.00)
[2017-06-01] MEDS: SODIUM CHLOR 0.9% 1000 ML INJ 1,000 ML IV SCH (12:45)
[2017-06-01] MEDS: LACTOBACILLUS ACIDOPHILUS TAB PO SCH ×2 (13:04→20:26)
[2017-06-01] MEDS: OSELTAMIVIR PHOSPHATE 75 MG CAP PO SCH ×2 (15:17→20:26)
[2017-06-01] MEDS: PRAVASTATIN SOD 20 MG TAB PO SCH (20:26)
[2017-06-01] MEDS: cefTRIAXone INJ 1,000 MG in SODIUM CHLORIDE 0.9% INJ 100 ML IV SCH (21:33)
[2017-06-02] VITALS (15 sets, daily range): BP systolic 102–149; BP diastolic 55–76; PULSE 78–102; RESP 15–30; TEMP 97.9–98.8; O2SAT 20–98
[2017-06-02 04:48] LABS: BICARBONATE 43.1 MEQ/L (21.0-32.0); CALCIUM 8.1 MG/DL (8.5-10.1); CREATININE 0.24 MG/DL (0.50-1.00)
[2017-06-02] MEDS: LACTOBACILLUS ACIDOPHILUS TAB PO SCH ×2 (08:37→20:57)
[2017-06-02] MEDS: FLECAINIDE ACETATE 100 MG TAB PO SCH ×2 (08:37→20:57)
[2017-06-02] MEDS: APIXABAN 2.5 MG TABLET PO SCH ×2 (08:37→20:57)
[2017-06-02] MEDS: amLODIPine BESYLATE 5 MG TAB PO SCH (08:38)
[2017-06-02] MEDS: AZITHROMYCIN 250 MG TAB PO SCH (08:38)
[2017-06-02] MEDS: ENALAPRIL MALEATE 5 MG TAB PO SCH ×2 (08:38→20:57)
[2017-06-02] MEDS: OSELTAMIVIR PHOSPHATE 75 MG CAP PO SCH ×2 (08:38→20:57)
[2017-06-02] MEDS: SODIUM CHLORIDE 0.9% FLUSH 10 ML FLUSH IV FLUSH SCH ×2 (08:38→20:56)
[2017-06-02] MEDS: RESP: IPRATROPIUM 0.5 MG/2.5 ML NEB NEB SCH ×3 (08:49→20:09)
--- NOTE | 2017-06-02 10:49 | HHI.FPPN ---
Subjective Remarks No acute events overnight. Patient states she is feeling a little better today. Denies increased work of breathing, chest pain. Has been using Acapella with increase in sputum production. (Vel Johnston MD R1) Objective Vitals Vital Signs Date Time Temp Pulse Resp B/P (MAP) Pulse Ox O2 Delivery O2 Flow Rate FiO2 06/02/17 10:00 99 06/02/17 08:51 94 home cpap 5.00 06/02/17 08:00 98.1 98 30 149/76 (100) 98 06/02/17 08:00 98 06/02/17 07:00 93 Bi-Pap 06/02/17 06:00 78 06/02/17 04:00 98.7 91 15 102/55 (71) 20 06/02/17 04:00 89 06/02/17 02:00 82 06/02/17 00:00 98.8 94 15 116/61 (79) 98 06/02/17 00:00 94 06/01/17 22:00 97 06/01/17 20:00 97 06/01/17 20:00 98.7 97 25 125/72 (89) 97 06/01/17 20:00 97 Nasal Cannula Bi-Pap 06/01/17 19:52 94 Nasal Cannula 5.00 06/01/17 18:00 90 06/01/17 16:00 93 06/01/17 16:00 98.8 93 20 117/56 (76) 94 06/01/17 14:00 96 06/01/17 12:00 98.4 92 22 122/64 (83) 93 06/01/17 12:00 92 06/01/17 11:45 95 Nasal Cannula 4.00 I/O 06/01/17 06/01/17 06/01/17 06/02/17 06/02/17 06/02/17 07:00 15:00 23:00 07:00 15:00 23:00 Intake Total 420 ml 100 ml Output Total 300 ml 250 ml Balance 120 ml -150 ml Intake Oral 320 ml 100 ml IV Total 100 ml Output Urine Total 300 ml 250 ml # Voids 2 # Bowel Movements 0 0 (Vel Johnston MD R1) Result Diagram: 06/01/17 0910 06/02/17 0328 Objective Remarks GENERAL: Well-nourished, well-developed patient sitting upright in bed with BiPAP mask, nasal cannula in place. Speaking in full sentences SKIN: Warm and dry. No rash. EYES: No scleral icterus. No injection or drainage. PERRLA. EOMI. HENT: Normocephalic. Atraumatic. MMM. NECK: No visible JVD or lymphadenopathy. CARDIOVASCULAR: Warm and well perfused. Grade 2 systolic murmur appreciated - less pronounced compared to previous exam. RESPIRATORY: Supraclavicular retractions appreciated - unchanged from prior exam. Breath sounds equal bilaterally with no crackles appreciated on today's exam GASTROINTESTINAL: Abdomen nondistended, nontender. MUSCULOSKELETAL: Strength grossly WNL. BACK: Without obvious deformity. NEURO/PSYCH: Afocal. Awake, alert, and oriented x3. 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 Being treated with Rocephin and azithromycin. Pulmonology consulted. Patient on BiPAP Elevated PCO2 on initial ABG, continued to increase the morning of 06/01. Repeat ABG on showed some improvement but still elevated. Dr. Dobbins will give further recommendations on breathing treatments Discharge Planning Anticipate discharge in 1-2 days, pending improvement in respiratory status, especially pCO2. (Vel Johnston MD R1) Attending Attestation Patient seen, examined, and discussed with Dr. Johnston during rounds this morning. I agree with assessment and management as documented and discussed with me. Pt seen with and daughter at bedside. She is using BiPAP regularly. Appreciate pulmonology. Await further recs. (Aaliyah Couch MD) Problem List: (1) Pneumonia ICD Codes: J18.9 - Pneumonia, unspecified organism Status: Acute Plan: Failed outpatient treatment with amoxicillin. Will continue coverage for community acquired pneumonia, with Rocephin and azithromycin as started at admission (05/31). Home BiPAP, oxygen supplementation at 3 L nasal cannula at baseline. ABG on the morning of 06/01 with elevated pCO2 (87 -> 101 ->83) Currently on 5 L O2 flow with BiPAP. Continue for now and will follow further recommendations from Dr. Dobbins (2) Hyponatremia ICD Codes: E87.1 - Hypo-osmolality and hyponatremia Status: Acute Plan: Hyponatremia 125 on admission. Appears euvolemic. Pedal swelling. CXR with findings that could represent vascular congestion. Asymptomatic -Received 50 ml 3% NS bolus at admission. -Sodium improved to 127 after bolus, has been stable at 126-127 on 05/31 -Urine osmolality 500, urine sodium 30. -Follow up a.m. labs -Fluid restrictions to 1500 milliliter per day, will follow up BMP in the a.m. 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 Appreciate further recs. Plan of care as above per pneumonia. (4) Murmur ICD Codes: R01.1 - Cardiac murmur, unspecified Plan: Grade 2/6 systolic murmur appreciated on 06/01 Echocardiogram pending (5) Afib ICD Codes: I48.91 - Unspecified atrial fibrillation Status: Chronic Plan: History of A. fib, reports currently well-controlled. -Continue home medications -Flecainide 50 mg by mouth twice a day -Eliquis 2.5 mg by mouth twice a day (6) Hypertension ICD Codes: I10 - Essential (primary) hypertension Status: Chronic Plan: -Continue home medications enalapril 5 mg by mouth twice a day, Norvasc 5 mg by mouth daily (7) HLD (hyperlipidemia) ICD Codes: E78.5 - Hyperlipidemia, unspecified Status: Chronic Plan: Continue home medication. -pravastatin 20 mg hs (8) FEN Plan: No IV fluids at this time Regular diet with fluid restrictions of 1500 mL per day Hyponatremia as described above, will replete electrolytes as needed Eliquis 2.5 mg twice daily for DVT prophylaxis (Vel Johnston MD R1) Problem Qualifiers (1) Pneumonia: Qualified Codes: J18.9 - Pneumonia, unspecified organism (2) Afib: Qualified Codes: I48.2 - Chronic atrial fibrillation (3) Hypertension: Qualified Codes: I10 - Essential (primary) hypertension (4) HLD (hyperlipidemia): Qualified Codes: E78.2 - Mixed hyperlipidemia Vel Johnston MD R1 Jun 02, 2017 10:48 Aaliyah Couch MD Jun 02, 2017 16:56
[2017-06-02] MEDS: SODIUM CHLOR 0.9% 1000 ML INJ 1,000 ML IV SCH (12:27)
[2017-06-02 14:05] LABS: AUTOMATED NEUTROPHIL # 6.5 TH/MM3 (1.8-7.7); BASOPHIL % 0.2 % (0.0-2.0); EOSINOPHIL % 0.6 % (0.0-4.0); HEMATOCRIT 31.2 % (35.0-46.0); HEMOGLOBIN 10.4 GM/DL (11.6-15.3); LYMPH % 10.6 % (9.0-44.0); LYMPHOCYTE # 0.8 TH/MM3 (1.0-4.8); MEAN CELL VOLUME 89.1 FL (80.0-100.0); MEAN CORPUSCULAR HEMOGLOBIN 29.6 PG (27.0-34.0); MEAN CORPUSCULAR HGB CONC 33.2 % (32.0-36.0); MEAN PLATELET VOLUME 8.2 FL (7.0-11.0); MONO % 7.1 % (0.0-8.0); MONOCYTE # 0.6 TH/MM3 (0-0.9); NEUT % 81.5 % (16.0-70.0); PLATELET COUNT 251 TH/MM3 (150-450)
--- NOTE | 2017-06-02 14:37 | ECHRPT ---
Indication: Heart failure, unspecified CONCLUSIONS The left ventricular systolic function is normal with an estimated ejection fraction in the range of 55-60%. Wall thickness is normal. Normal left ventricular size. Mild aortic valve stenosis. Aortic valve area is 1.2 cm. mean gradient = 17 mmhg c/w mild stenosis There is severe tricuspid regurgitation. The estimated pulmonary arterial pressure is 62.3 mmHg. Moderate mitral valve regurgitation. mild to moderate mitral valve stenosis with peak gradient = 18 mm hg, mean gradient = 10 mm hg BP: 122 / 64 HR: 92 Rhythm: Sinus MEASUREMENTS (Male / Female) Normal Values Technical Quality:Fair 2D ECHO LV Diastolic Diameter PLAX 3.4 cm 4.2 - 5.9 / 3.9 - 5.3 cm LV Systolic Diameter PLAX 2.6 cm IVS Diastolic Thickness 0.9 cm 0.6 - 1.0 / 0.6 - 0.9 cm LVPW Diastolic Thickness 0.9 cm 0.6 - 1.0 / 0.6 - 0.9 cm LV Relative Wall Thickness 0.5 LVOT Diameter 2.1 cm M-MODE Aortic Root Diameter MM 3.0 cm LA Systolic Diameter MM 3.1 cm LA Ao Ratio MM 1.0 AV Cusp Separation MM 1.9 cm DOPPLER AV Peak Velocity 266.2 cm/s AV Peak Gradient 28.3 mmHg AV Mean Gradient 15.0 mmHg AV Velocity Time Integral 51.1 cm LVOT Peak Velocity 88.4 cm/s LVOT Peak Gradient 3.1 mmHg AV Area Cont Eq pk 1.2 cm MV Peak Velocity 213.0 cm/s MV Peak Gradient 18.1 mmHg MV Mean Velocity 152.0 cm/s MV Mean Gradient 10.0 mmHg MR Peak Velocity 634.0 cm/s MR Peak Gradient 160.8 mmHg Mitral E Point Velocity 160.0 cm/s Mitral A Point Velocity 191.0 cm/s Mitral E to A Ratio 0.8 LV E' Lateral Velocity 14.5 cm/s Mitral E to LV E' Lateral Ratio 11.0 TR Peak Velocity 361.7 cm/s TR Peak Gradient 52.3 mmHg Right Atrial Pressure 10.0 mmHg Pulmonary Artery Systolic Pressu 62.3 mmHg Right Ventricular Systolic Press 62.3 mmHg PV Peak Velocity 156.0 cm/s PV Peak Gradient 9.7 mmHg FINDINGS LEFT VENTRICLE The left ventricular systolic function is normal with an estimated ejection fraction in the range of 55-60%. Wall thickness is normal. Normal left ventricular size. RIGHT VENTRICLE Normal right ventricular size and systolic function. LEFT ATRIUM The left atrial size is normal. RIGHT ATRIUM The right atrial size is normal. ATRIAL SEPTUM Normal atrial septal thickness without atrial level shunting by limited color doppler interrogation. AORTA The aortic root and proximal ascending aorta are normal in size on limited imaging. MITRAL VALVE Moderate mitral valve regurgitation. AORTIC VALVE Mild aortic valve stenosis. Aortic valve area is 1.2 cm. PULMONARY VALVE No pulmonary valve regurgitation or stenosis. VESSELS The inferior vena cava is normal in size. PERICARDIUM No pericardial effusion. Scott Ortega MD, FACC, FSCAI (Electronically Signed) Final Date:02 June 2017 14:36
--- NOTE | 2017-06-02 16:55 | RADRPT ---
EXAM DATE/TIME: 06/02/2017 13:26 [facility] COMPARISON: CHEST SINGLE AP, May 30, 2017, 17:35. INDICATIONS : Evaluate for pneumonia MEDICAL HISTORY : Chronic obstructive pulmonary disease. A fib SURGICAL HISTORY : None. ENCOUNTER: Subsequent ACUITY: 2 days PAIN SCORE: 0/10 LOCATION: Bilateral chest FINDINGS: Lungs are hyperexpanded with diffuse interstitial prominence and bilateral lower lobe fibrotic change . Superimposed right lower lung zone airspace consolidation with air bronchograms. Cardiomediastinal contours are stable. Remainder of exam is unchanged. CONCLUSION: 1. Right lower lung zone pneumonia superimposed on bilateral lower lobe pulmonary fibrotic change. Han Gonzalez MD on June 02, 2017 at 16:52 Board Certified Radiologist. This report was verified electronically.
[2017-06-02] MEDS: PRAVASTATIN SOD 20 MG TAB PO SCH (20:56)
[2017-06-03] VITALS (17 sets, daily range): BP systolic 128–175; BP diastolic 58–87; PULSE 81–112; RESP 18–24; TEMP 97.6–98.9; O2SAT 91–96
[2017-06-03 04:21] LABS: AUTOMATED NEUTROPHIL # 5.6 TH/MM3 (1.8-7.7); BASOPHIL % 0.2 % (0.0-2.0); EOSINOPHIL # 0.1 TH/MM3 (0-0.4); EOSINOPHIL % 1.2 % (0.0-4.0); HEMOGLOBIN 10.3 GM/DL (11.6-15.3); LYMPH % 10.7 % (9.0-44.0); LYMPHOCYTE # 0.8 TH/MM3 (1.0-4.8); MEAN CELL VOLUME 89.5 FL (80.0-100.0); MEAN CORPUSCULAR HEMOGLOBIN 29.8 PG (27.0-34.0); MEAN CORPUSCULAR HGB CONC 33.3 % (32.0-36.0); MEAN PLATELET VOLUME 8.5 FL (7.0-11.0); MONO % 9.4 % (0.0-8.0); MONOCYTE # 0.7 TH/MM3 (0-0.9); NEUT % 78.5 % (16.0-70.0); PLATELET COUNT 252 TH/MM3 (150-450); RED BLOOD COUNT 3.46 MIL/MM3 (4.00-5.30); RED CELL DISTRIBUTION WIDTH 13.9 % (11.6-17.2); WHITE BLOOD COUNT 7.1 TH/MM3 (4.0-11.0)
[2017-06-03 04:46] LABS: CALCIUM 8.2 MG/DL (8.5-10.1); CREATININE 0.18 MG/DL (0.50-1.00)
[2017-06-03] MEDS: RESP: IPRATROPIUM 0.5 MG/2.5 ML NEB NEB SCH ×3 (07:54→20:34)
[2017-06-03] MEDS: ENALAPRIL MALEATE 5 MG TAB PO SCH ×2 (08:05→20:52)
[2017-06-03] MEDS: FLECAINIDE ACETATE 100 MG TAB PO SCH ×2 (08:05→20:51)
[2017-06-03] MEDS: amLODIPine BESYLATE 5 MG TAB PO SCH (08:05)
[2017-06-03] MEDS: OSELTAMIVIR PHOSPHATE 75 MG CAP PO SCH (08:05)
[2017-06-03] MEDS: APIXABAN 2.5 MG TABLET PO SCH ×2 (08:05→20:50)
[2017-06-03] MEDS: SODIUM CHLORIDE 0.9% FLUSH 10 ML FLUSH IV FLUSH SCH ×2 (08:05→20:49)
[2017-06-03] MEDS: AZITHROMYCIN 250 MG TAB PO SCH (08:05)
[2017-06-03] MEDS: LACTOBACILLUS ACIDOPHILUS TAB PO SCH ×2 (08:05→20:50)
[2017-06-03] MEDS: SODIUM CHLOR 0.9% 1000 ML INJ 1,000 ML IV SCH (10:13)
--- NOTE | 2017-06-03 11:50 | HHI.FPPN ---
Subjective Remarks Patient seen and examined bedside this morning. She states that she is doing better today than yesterday. She feels that her breathing has improved. She has been able to eat a little bit at a time when her BiPAP is off. They have been in contact with her registered nurse practitioner Dr. dobbins who has ordered another ABG for this morning and will then determine if she can go back to the regular floor. According to the family there is no long-term plan at this point Objective Vitals Vital Signs Date Time Temp Pulse Resp B/P (MAP) Pulse Ox O2 Delivery O2 Flow Rate FiO2 06/03/17 10:00 95 06/03/17 08:00 97 06/03/17 08:00 97.6 97 20 136/62 (86) 92 06/03/17 07:00 95 Bi-Pap 06/03/17 06:00 81 06/03/17 04:00 86 06/03/17 04:00 97.8 86 20 128/58 (81) 96 06/03/17 03:04 95 06/03/17 02:00 88 06/03/17 00:00 87 06/03/17 00:00 98.2 87 24 139/65 (89) 95 06/02/17 23:55 94 06/02/17 22:00 95 06/02/17 20:13 96 06/02/17 20:00 97.9 89 24 147/69 (95) 94 06/02/17 20:00 89 06/02/17 19:00 95 Bi-Pap 06/02/17 18:00 102 06/02/17 16:00 96 06/02/17 16:00 98.5 96 30 146/70 (95) 95 06/02/17 14:00 102 06/02/17 12:00 98.2 97 24 144/63 (90) 91 06/02/17 12:00 97 I/O 06/02/17 06/02/17 06/02/17 06/03/17 06/03/17 06/03/17 07:00 15:00 23:00 07:00 15:00 23:00 Intake Total 100 ml 1000 ml 200 ml 240 ml Output Total 250 ml 1050 ml 0 ml 600 ml Balance -150 ml -50 ml 200 ml -360 ml Intake Oral 100 ml 200 ml 240 ml IV Total 1000 ml Output Urine Total 250 ml 1050 ml 0 ml 600 ml Bladder Scan Volume Amount 668 ml # Voids 1 1 # Bowel Movements 0 0 1 0 Result Diagram: 06/03/172 06/03/17 032 Objective Remarks GENERAL: Well-nourished, well-developed patient sitting upright in bed with BiPAP mask, nasal cannula in place. Speaking in full sentences SKIN: Warm and dry. No rash. EYES: No scleral icterus. No injection or drainage. PERRLA. EOMI. HENT: Normocephalic. Atraumatic. MMM. NECK: No visible JVD or lymphadenopathy. CARDIOVASCULAR: Warm and well perfused. Grade 3/6 systolic murmur appreciated. RESPIRATORY: Supraclavicular retractions appreciated - unchanged from prior exam. Breath sounds equal bilaterally with no crackles appreciated on today's exam GASTROINTESTINAL: Abdomen nondistended, nontender. MUSCULOSKELETAL: Strength grossly WNL. BACK: Without obvious deformity. NEURO/PSYCH: Afocal. Awake, alert, and oriented x3. 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 Being treated with Rocephin and azithromycin. Pulmonology consulted. Patient on BiPAP Elevated PCO2 on initial ABG, continued to increase the morning of 06/01. Repeat ABG on showed some improvement but still elevated. Dr. Dobbins will give further recommendations on breathing treatments Discharge Planning Anticipate discharge in 1-2 days, pending improvement in respiratory status, especially pCO2. Problem List: (1) Pneumonia ICD Codes: J18.9 - Pneumonia, unspecified organism Status: Acute Plan: Failed outpatient treatment with amoxicillin. Will continue coverage for community acquired pneumonia, with Rocephin and azithromycin as started at admission (05/31-06/07). Home BiPAP, oxygen supplementation alternates with nasal cannula and CPAP ABG on the morning of 06/03 with PCO2 of 78, from 83 on 06/01 . Continue for now and will follow further recommendations from Dr. Dobbins (2) Hyponatremia ICD Codes: E87.1 - Hypo-osmolality and hyponatremia Status: Acute Plan: Hyponatremia 125 on admission, has slowly improved to 135 today. Appears euvolemic. -Received 50 ml 3% NS bolus at admission. -Sodium improved to 127 after bolus -Urine osmolality 500, urine sodium 30. -Follow up a.m. labs -DC fluid restriction Follow-up BMP in a.m. 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 Appreciate further recs. Plan of care as above per pneumonia. (4) Murmur ICD Codes: R01.1 - Cardiac murmur, unspecified Plan: Grade 2/6 systolic murmur appreciated on 06/01 Echocardiogram: Ejection fraction normal at 55-60%, mild aortic valve stenosis, severe tricuspid regurgitation, pulmonary arterial pressure 62, moderate mitral valve regurg (5) Afib ICD Codes: I48.91 - Unspecified atrial fibrillation Status: Chronic Plan: History of A. fib, reports currently well-controlled. -Continue home medications -Flecainide 50 mg by mouth twice a day -Eliquis 2.5 mg by mouth twice a day (6) Hypertension ICD Codes: I10 - Essential (primary) hypertension Status: Chronic Plan: -Continue home medications enalapril 5 mg by mouth twice a day, Norvasc 5 mg by mouth daily (7) HLD (hyperlipidemia) ICD Codes: E78.5 - Hyperlipidemia, unspecified Status: Chronic Plan: Continue home medication. -pravastatin 20 mg hs (8) FEN Plan: No IV fluids at this time Regular diet Hyponatremia resolved as above, will replete electrolytes as needed Eliquis 2.5 mg twice daily for DVT prophylaxis Problem Qualifiers (1) Pneumonia: Qualified Codes: J18.9 - Pneumonia, unspecified organism (2) Afib: Qualified Codes: I48.2 - Chronic atrial fibrillation (3) Hypertension: Qualified Codes: I10 - Essential (primary) hypertension (4) HLD (hyperlipidemia): Qualified Codes: E78.2 - Mixed hyperlipidemia Lyubov Chambers MD R2 Jun 03, 2017 11:50
[2017-06-03] MEDS: PRAVASTATIN SOD 20 MG TAB PO SCH (20:50)
[2017-06-04 00:01] VITALS: PULSE 81
[2017-06-04 03:47] VITALS: BP 153/79; PULSE 95; RESP 18; TEMP 97.7; O2SAT 94
[2017-06-04 03:48] VITALS: PULSE 93
[2017-06-04 08:00] VITALS: BP 143/73; PULSE 96; RESP 20; TEMP 98.3; O2SAT 93
[2017-06-04] MEDS: RESP: IPRATROPIUM 0.5 MG/2.5 ML NEB NEB SCH ×2 (08:40→12:29)
[2017-06-04] MEDS: FLECAINIDE ACETATE 100 MG TAB PO SCH (09:14)
[2017-06-04] MEDS: ENALAPRIL MALEATE 5 MG TAB PO SCH (09:15)
[2017-06-04] MEDS: AZITHROMYCIN 250 MG TAB PO SCH (09:15)
[2017-06-04] MEDS: LACTOBACILLUS ACIDOPHILUS TAB PO SCH (09:15)
[2017-06-04] MEDS: amLODIPine BESYLATE 5 MG TAB PO SCH (09:15)
[2017-06-04] MEDS: APIXABAN 2.5 MG TABLET PO SCH (09:15)
[2017-06-04] MEDS: SODIUM CHLORIDE 0.9% FLUSH 10 ML FLUSH IV FLUSH SCH (09:16)
[2017-06-04 12:10] LABS: BASOPHIL % 0.1 % (0.0-2.0); EOSINOPHIL # 0.1 TH/MM3 (0-0.4); EOSINOPHIL % 0.8 % (0.0-4.0); HEMATOCRIT 32.3 % (35.0-46.0); HEMOGLOBIN 10.6 GM/DL (11.6-15.3); LYMPHOCYTE # 0.8 TH/MM3 (1.0-4.8); MEAN CELL VOLUME 89.5 FL (80.0-100.0); MEAN CORPUSCULAR HEMOGLOBIN 29.4 PG (27.0-34.0); MEAN CORPUSCULAR HGB CONC 32.8 % (32.0-36.0); MEAN PLATELET VOLUME 8.6 FL (7.0-11.0); MONO % 5.9 % (0.0-8.0); MONOCYTE # 0.5 TH/MM3 (0-0.9); NEUT % 84.2 % (16.0-70.0); PLATELET COUNT 300 TH/MM3 (150-450); RED BLOOD COUNT 3.61 MIL/MM3 (4.00-5.30); RED CELL DISTRIBUTION WIDTH 13.8 % (11.6-17.2); WHITE BLOOD COUNT 8.4 TH/MM3 (4.0-11.0)
--- NOTE | 2017-06-04 12:27 | HHI.FPPN ---
Subjective Remarks No acute issues overnight. Vitals are stable, patient remains afebrile. She had a little bit of shortness of breath when she woke up this morning, but is feeling her baseline now. She is currently saturating 93% on 5 L nasal cannula. She denies any chest pain, fever, chills, nausea, vomiting. She is tolerating PO. She would like to go home today. Objective Vitals Vital Signs Date Time Temp Pulse Resp B/P (MAP) Pulse Ox O2 Delivery O2 Flow Rate FiO2 06/04/17 09:30 Nasal Cannula 5.00 06/04/17 08:42 Nasal Cannula 5.00 06/04/17 08:00 98.3 96 20 143/73 (96) 93 06/04/17 03:48 93 06/04/17 03:47 97.7 95 18 153/79 (103) 94 06/04/17 00:01 81 06/03/17 23:35 98.6 97 18 163/78 (106) 93 06/03/17 22:33 96 06/03/17 20:42 97.7 106 18 175/87 (116) 92 06/03/17 20:34 Nasal Cannula 4.00 06/03/17 19:00 91 Nasal Cannula 5.00 06/03/17 18:00 100 06/03/17 16:10 98.7 97 22 144/76 (98) 91 06/03/17 16:00 97 06/03/17 14:36 93 Nasal Cannula 4.00 06/03/17 14:00 90 I/O 06/03/17 06/03/17 06/03/17 06/04/17 06/04/17 06/04/17 07:00 15:00 23:00 07:00 15:00 23:00 Intake Total 240 ml 360 ml Output Total 600 ml 1200 ml Balance -360 ml -840 ml Intake Oral 240 ml 360 ml Output Urine Total 600 ml 1200 ml # Voids 1 3 # Bowel Movements 0 1 0 Result Diagram: 06/04/17 1047 06/03/17 0322 Imaging Last Impressions Chest X-Ray 06/02/17 0000 Signed Impressions: Service Date/Time: May 13:26 - CONCLUSION: 1. Right lower lung zone pneumonia superimposed on bilateral lower lobe pulmonary fibrotic change. Han Gonzalez MD Head CT 05/30/17 5259 Signed Impressions: Service Date/Time: Tuesday, May 30, 2017 18:04 - CONCLUSION: 1. 1.7 cm meningioma in the right frontal region without significant mass effect. Otherwise no acute intracranial abnormality. Jamal Chan MD Objective Remarks GENERAL: Well-nourished, well-developed patient sitting upright in bed with nasal cannula in place. Speaking in full sentences SKIN: Warm and dry. No rash. EYES: No scleral icterus. No injection or drainage. PERRLA. EOMI. HENT: Normocephalic. Atraumatic. MMM. NECK: No visible JVD or lymphadenopathy. CARDIOVASCULAR: Warm and well perfused. Grade 3/6 systolic murmur appreciated. RESPIRATORY: Supraclavicular retractions appreciated - unchanged from prior exam. Breath sounds equal bilaterally with no crackles appreciated on today's exam GASTROINTESTINAL: Abdomen nondistended, nontender. MUSCULOSKELETAL: Strength grossly WNL. BACK: Without obvious deformity. NEURO/PSYCH: Afocal. Awake, alert, and oriented x3. 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 Pulmonology consulted. Discharge Planning Anticipate discharge today or tomorrow, pending improvement in respiratory status, especially pCO2. Problem List: (1) Pneumonia ICD Codes: J18.9 - Pneumonia, unspecified organism Status: Resolved Plan: Failed outpatient treatment with amoxicillin. s/p Rocephin and azithromycin (05/31-06/04). Home BiPAP, oxygen supplementation alternates with nasal cannula and CPAP ABG on the morning of 06/03 with PCO2 of 78, from 83 on 06/01 . Continue for now and will follow further recommendations from Dr. 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 Appreciate further recs. Plan of care as above per pneumonia. (3) Hyponatremia ICD Codes: E87.1 - Hypo-osmolality and hyponatremia Status: Acute Plan: Hyponatremia 125 on admission, has slowly improved to 135 yesterday. Appears euvolemic. -Received 50 ml 3% NS bolus at admission. -Sodium improved to 127 after bolus -Urine osmolality 500, urine sodium 30. -AM labs pending (4) Murmur ICD Codes: R01.1 - Cardiac murmur, unspecified Plan: Grade 2/6 systolic murmur appreciated on 06/01 Echocardiogram: Ejection fraction normal at 55-60%, mild aortic valve stenosis, severe tricuspid regurgitation, pulmonary arterial pressure 62, moderate mitral valve regurg (5) Afib ICD Codes: I48.91 - Unspecified atrial fibrillation Status: Chronic Plan: History of A. fib, reports currently well-controlled. -Continue home medications -Flecainide 50 mg by mouth twice a day -Eliquis 2.5 mg by mouth twice a day (6) Hypertension ICD Codes: I10 - Essential (primary) hypertension Status: Chronic Plan: -Continue home medications enalapril 5 mg by mouth twice a day, Norvasc 5 mg by mouth daily (7) HLD (hyperlipidemia) ICD Codes: E78.5 - Hyperlipidemia, unspecified Status: Chronic Plan: Continue home medication. -pravastatin 20 mg hs (8) FEN Plan: No IV fluids at this time Regular diet Hyponatremia resolved as above, will replete electrolytes as needed Eliquis 2.5 mg twice daily for DVT prophylaxis Problem Qualifiers (1) Pneumonia: Qualified Codes: J18.9 - Pneumonia, unspecified organism (2) Afib: Qualified Codes: I48.2 - Chronic atrial fibrillation (3) Hypertension: Qualified Codes: I10 - Essential (primary) hypertension (4) HLD (hyperlipidemia): Qualified Codes: E78.2 - Mixed hyperlipidemia Allie Lozano MD, R3 Jun 04, 2017 12:27
--- NOTE | 2017-06-04 12:35 | HHI.DCPOC ---
Discharge Care Plan Diagnosis: (1) Lymphangioleiomyomatosis (2) Pneumonia Goals to Promote Your Health * To prevent worsening of your condition and complications * To maintain your health at the optimal level Directions to Meet Your Goals Take your medications as prescribed Follow your dietary instruction Follow activity as directed Keep your appointments as scheduled Take your immunizations and boosters as scheduled If your symptoms worsen call your PCP, if no PCP go to Urgent Care Center or Emergency Room Smoking is Dangerous to Your Health. Avoid second hand smoke Call the 24-hour hour crisis hotline for domestic abuse at Allie Lozano MD, R3 Jun 04, 2017 12:35
[2017-06-04 12:54] LABS: BICARBONATE 42.7 MEQ/L (21.0-32.0); CALCIUM 8.1 MG/DL (8.5-10.1); CREATININE 0.3 MG/DL (0.50-1.00)
--- NOTE | 2017-06-07 08:36 | HHI.DS ---
Discharge Summary Admission Date May 30, 2017 at 21:14 Discharge Date: Jun 04, 2017 Admitting Diagnosis pneumonia, failed outpatient treatment, TRAN disease (1) Pneumonia ICD Codes: J18.9 - Pneumonia, unspecified organism Status: Acute (2) Lymphangioleiomyomatosis ICD Codes: J84.81 - Lymphangioleiomyomatosis Status: Chronic (3) Hyponatremia ICD Codes: E87.1 - Hypo-osmolality and hyponatremia Status: Acute (4) Murmur ICD Codes: R01.1 - Cardiac murmur, unspecified (5) Afib ICD Codes: I48.91 - Unspecified atrial fibrillation Status: Chronic Brief History Patient is an 82-year-old female with past history of lymphangioleiomyomatosis, chylous effusions, A. fib, hypertension presenting today with shortness of breath. She states she saw her clinical support specialist Dr. dobbins 4 days prior to admission for shortness of breath, was prescribed amoxicillin and was told to contact him if there was no improvement over several days. Over this time she had shortness of breath, mild cough, some sputum production, dizziness, "eyes jumping around" described as unfocused vision or "shaky vision." There was no improvement, she contacted her clinical support specialist and he advised her to go to the ER. The patient states her shaky vision is typically present when her carbon dioxide becomes too high, which has happened in the past. No headache, diplopia , localized weakness. She states her TRAN typically is asymptomatic, however every now and then she has cold-like symptoms. Occasionally she states she coughs up something that looks like "wet popcorn." No blood in her sputum, purulent smell. She reports she's had insomnia for years, currently treated with Xanax at bedtime. Denies nausea, vomiting, fever, chills, abdominal pain, chest pain, arm/jaw pain. Reports she is typically on 4 L/min O2 during the day , 2-3 L/m at night. CBC/BMP: 06/04/17 1047 06/04/17 1047 Significant Findings Laboratory Tests Test 06/04/17 10:47 Red Blood Count 3.61 MIL/MM3 (4.00-5.30) Hemoglobin 10.6 GM/DL (11.6-15.3) Hematocrit 32.3 % (35.0-46.0) Neutrophils (%) (Auto) 84.2 % (16.0-70.0) Lymphocytes # (Auto) 0.8 TH/MM3 (1.0-4.8) Creatinine 0.30 MG/DL (0.50-1.00) Random Glucose 186 MG/DL (74-106) Calcium Level 8.1 MG/DL (8.5-10.1) Sodium Level 132 MEQ/L (136-145) Chloride Level 88 MEQ/L (98-107) Carbon Dioxide Level 42.7 MEQ/L (21.0-32.0) Anion Gap 1 MEQ/L (5-15) PE at Discharge GENERAL: Well-nourished, well-developed patient sitting upright in bed with nasal cannula in place. Speaking in full sentences SKIN: Warm and dry. No rash. EYES: No scleral icterus. No injection or drainage. PERRLA. EOMI. HENT: Normocephalic. Atraumatic. MMM. NECK: No visible JVD or lymphadenopathy. CARDIOVASCULAR: Warm and well perfused. Grade 3/6 systolic murmur appreciated. RESPIRATORY: Supraclavicular retractions appreciated - unchanged from prior exam. Breath sounds equal bilaterally with no crackles appreciated on today's exam GASTROINTESTINAL: Abdomen nondistended, nontender. MUSCULOSKELETAL: Strength grossly WNL. BACK: Without obvious deformity. NEURO/PSYCH: Afocal. Awake, alert, and oriented x3. Hospital Course Patient was admitted after failed outpatient treatment with amoxicillin. She was started on Rocephin and Azithromycin and completed a 5 day course during the hospital stay. Her clinical support specialist Dr. Dobbins was consulted as he has managed her Lymphangioleiomyomatosis for some time. He agreed with the antibiotic course and recommended continuing home BiPAP with oxygen supplementation. ABGs were trended to monitor for PCO2 levels. On admission the PCO2 was 87. On 06/01 and had raised to 101 and patient was moved to the ICU for closer monitoring. She was continued on her BiPAP with an increase oxygen flow rate. On 06/03 the PCO2 was 78 and patient was transferred back to the regular floor. Also of note she was found to be hyponatremic with a sodium of 125 on admission. She received 50 mL 3% normal saline bolus in the ED and was fluid restricted. Sodium increased to 135 over 4 day course and fluid restriction was removed. Also of note she is noted to have a grade 2/6 systolic murmur and an echocardiogram showed an ejection fraction of 55-60%, severe tricuspid regurgitation and a pulmonary arterial pressure of 62. Patient was feeling symptomatically better and on 06/04 Dr. dobbins stated the patient was safe to return home. At that time the patient and primary team agreed and the patient was discharged with close follow-up. Pt Condition on Discharge: Stable Discharge Disposition: Discharge Home Discharge Instructions DIET: Follow Instructions for: As Tolerated, No Restrictions Activities you can perform: Regular-No Restrictions Follow up Referrals: PCP Follow-up Pulmonology - 1 Week Continued Medications: Alprazolam (Xanax) 0.25 Mg Tab 0.25 MG PO Q8H PRN for ANXIETY, TAB 0 Refills Amlodipine (Norvasc) 5 Mg Tab 5 MG PO DAILY for Blood Pressure Management, #30 TAB 0 Refills Apixaban (Eliquis) 2.5 Mg Tab 2.5 MG PO BID for Blood Clot Prevention, TAB 0 Refills Enalapril (Vasotec) 5 Mg Tab 5 MG PO BID, #60 TAB 0 Refills Flecainide (Flecainide) 50 Mg Tab 50 MG PO BID for Regulate Heart Beat, #60 TAB 0 Refills Pantoprazole (Protonix) Unknown Strength Tab 1 TAB PO BID for Reflux, #30 TAB 0 Refills Simvastatin (Zocor) 10 Mg Tab 10 MG PO HS for Cholesterol Management, #30 TAB 0 Refills Discontinued Medications: Amoxicillin (Amoxicillin) 500 Mg Cap 500 MG PO TID for Infection, CAP 0 Refills Vel Johnston MD R1 Jun 07, 2017 08:36
--- NOTE | 2017-06-07 20:36 | MD ---
cc: Kamlesh HICKEY ADMISSION DATE: 05/30/2017 DISCHARGE DATE: 06/04/2017 BRIEF PULMONARY DISCHARGE Ms. Arroyo is an 82-year-old white female with TRAN who presented with a [id number] week history of cough, congestion and URI. She was quite debilitated, hypoxic, on nasal oxygen and initial arterial blood gases - pCO2 was 87 with a pH 7.3, pO2 72 on 3 liters. She was admitted. She was initially started on Rocephin and Zithromax because she had what appeared to be increasing infiltrate at the right base compared to previous, although she does have bibasilar chronic interstitial changes, right greater than left. Multiple cultures were done. Nasal aspirate for influenza, Legionella and pneumococcal antigens in the urine all were negative including sputum with normal ai. Influenza PCR was also done and negative as well as a panel of other viral pathogens. She also received Atrovent aerosol therapy for congestion and she said that was quite helpful. We will continue that at home on a p.r.n. basis. She is still quite weak and debilitated, but she has a very attentive who has been caring for her for years. Follow up arterial blood gases are improved. On 3 liters, she is now pO2 of 67, pH 7.36, pCO2 is down to 78. Her normal as about 65. PHYSICAL EXAMINATION VITAL SIGNS: at present 98 degrees, 140/70, respirations 18, pulse 90. NECK: Neck veins are flat. LUNGS: Bibasilar rales. No congestion or wheezing. HEART: Regular rhythm. No harsh murmur. EXTREMITIES: Edema that she had on admission has resolved. She will be discharged home today with her Atrovent for nebulization t.i.d. as needed, oxygen BiPap whenever she is sleeping and p.r.n. during the day. She will resume her doxycycline which she has been on for many years but no additional antibiotics. I will see her back in the office in 7-10 days and she will call if problems arise prior to that. R. MD ARELIS Veras/ /12:34 PM /8:21 PM
== END 2017-06-04 13:13 | disposition home or self-care (01) | DRG 193 ==
LOC: NEPE 16:59 → NEDA 20:03 → OBSVTOIN 21:14 → N05B 23:12 → N03A 06-01 10:50 → N04B 06-03 18:49
PROVIDERS: ADMIT Family Medicine; ATTEND Family Medicine
DX: J18.9 Pneumonia, unspecified organism (principal); J84.81 Lymphangioleiomyomatosis; J96.10 Chronic respiratory failure, unspecified whether with hypoxia or hypercapnia; E87.1 Hypo-osmolality and hyponatremia; Z99.81 Dependence on supplemental oxygen; I48.2 Chronic atrial fibrillation; Z79.02 Long term (current) use of antithrombotics/antiplatelets; I10 Essential (primary) hypertension; E78.2 Mixed hyperlipidemia; R01.1 Cardiac murmur, unspecified; Z86.011 Personal history of benign neoplasm of the brain
CPT/HCPCS: 36600; 70450; 71045; 80048; 80053; 81001; 82550; 82805; 83735; 83880; 83935; 84295; 84300; 84484; 85025; 85027; 85610; 85730; 87040; 87070; 87086; 87205; 87449; 87633; 87804; 93005; 93306; 94640; 94664; 94667; 94668; 96365; J0696; J1956; J7030; J7644

== ENCOUNTER 2017-06-06 12:38 | Inpatient (IN) | payer MEDICARE ==
[~2017-06-06] VITALS: Ht 160 cm; Wt 49.2 kg
[~2017-06-06 12:38] MED LIST: ALPR.25 PO; AMLO5 PO; APIX2.5T PO; ENAL5TAB98 PO; FLEC1TAB8 PO; PANT20 PO; ZOCO10TA PO
[2017-06-06] MEDS ORDERED: IOHEXOL 350 MG/ML 10 ML VIAL (for RAD DIAG) IVCONTRAST ONE (12:39)
[2017-06-06 12:40] VITALS: BP 150/70; PULSE 102; RESP 16; TEMP 99.4; O2SAT 99
--- NOTE | 2017-06-06 13:24 | RADRPT ---
EXAM DATE/TIME: 06/06/2017 13:12 [facility] COMPARISON: CHEST SINGLE AP, May 30, 2017, 17:35. CHEST SINGLE AP, June 02, 2017, 13:26. INDICATIONS : Short of breath. MEDICAL HISTORY : Chronic obstructive pulmonary disease. A-fib, Lymphangioleiomyomatosis SURGICAL HISTORY : wires put in grom her to into her chest for research for her condition ENCOUNTER: Initial ACUITY: 2 weeks PAIN SCORE: 0/10 LOCATION: Bilateral chest FINDINGS: PA and lateral views of the chest show interval improvement in the bibasilar consolidations particula rly on the right. Small effusions remain. Underlying chronic interstitial fibrotic change noted. The heart is normal in size. A degenerative and scoliotic spine. Coils overlie the epigastrium from prior arterial embolization. CONCLUSION: Improving bibasilar consolidations and small effusions. Underlying chronic interstitial fibrotic horne ge. Bhaskar Meyers Jr., MD on June 06, 2017 at 13:20 Board Certified Radiologist. This report was verified electronically.
[2017-06-06] MEDS ORDERED: DOXY1CAP74 PO (14:12)
[2017-06-06 14:28] LABS: AUTOMATED NEUTROPHIL # 7.7 TH/MM3 (1.8-7.7); BASOPHIL % 0.3 % (0.0-2.0); EOSINOPHIL # 0.1 TH/MM3 (0-0.4); EOSINOPHIL % 1.3 % (0.0-4.0); HEMATOCRIT 34.5 % (35.0-46.0); HEMOGLOBIN 11.3 GM/DL (11.6-15.3); LYMPH % 9.2 % (9.0-44.0); LYMPHOCYTE # 0.9 TH/MM3 (1.0-4.8); MEAN CELL VOLUME 89.5 FL (80.0-100.0); MEAN CORPUSCULAR HEMOGLOBIN 29.3 PG (27.0-34.0); MEAN CORPUSCULAR HGB CONC 32.7 % (32.0-36.0); MEAN PLATELET VOLUME 8.2 FL (7.0-11.0); MONO % 9.9 % (0.0-8.0); NEUT % 79.3 % (16.0-70.0); PLATELET COUNT 365 TH/MM3 (150-450); RED BLOOD COUNT 3.86 MIL/MM3 (4.00-5.30); RED CELL DISTRIBUTION WIDTH 14.1 % (11.6-17.2); WHITE BLOOD COUNT 9.7 TH/MM3 (4.0-11.0)
[2017-06-06 14:37] LABS: INTERNATIONAL NORMALIZED RATIO 0.9 RATIO; PROTHROMBIN TIME - PATIENT 9.4 SEC (9.8-11.6)
[2017-06-06 14:53] LABS: BICARBONATE 44.5 MEQ/L (21.0-32.0); BLOOD UREA NITROGEN 12 MG/DL (7-18); CALCIUM 8.6 MG/DL (8.5-10.1); CHLORIDE 89 MEQ/L (98-107); CREATININE 0.29 MG/DL (0.50-1.00); GLOMERULAR FILTRATION RATE 222 ML/MIN (>89); GLUCOSE,RANDOM 117 MG/DL (74-106); SODIUM (NA) 133 MEQ/L (136-145)
[2017-06-06 14:57] LABS: TROPONIN I LESS THAN 0.02 NG/ML (0.02-0.05)
--- NOTE | 2017-06-06 16:04 | RADRPT ---
EXAM DATE/TIME: 06/06/2017 15:27 [facility] COMPARISON: CHEST PA & LAT, June 06, 2017, 13:12. CT BRAIN W/O CONTRAST, May 30, 2017, 18:04. INDICATIONS : Coughing up bloody mucus IV CONTRAST: 50 cc Omnipaque 350 (iohexol) IV RADIATION DOSE: 6.49 CTDIvol (mGy) MEDICAL HISTORY : Hypertension. Chronic obstructive pulmonary disease. A fib,esophogeal stricture SURGICAL HISTORY : Appendectomy. Hysterectomy. ENCOUNTER: Initial ACUITY: 1 day PAIN SCALE: 0/10 LOCATION: chest TECHNIQUE: Volumetric scanning of the chest was performed using a pulmonary embolism protocol MIP images were re constructed. Using automated exposure control and adjustment of the mA and/or kV according to patien t size, radiation dose was kept as low as reasonably achievable to obtain optimal diagnostic quality images. DICOM format image data is available electronically for review and comparison. Follow-up recommendations for detected pulmonary nodules are based at a minimum on nodule size and pa tient risk factors according to Fleischner Society Guidelines. FINDINGS: The examination is of excellent diagnostic quality. No pulmonary embolus is identified. There is no significant hilar or mediastinal adenopathy evident. The heart is mildly enlarged. Imaging through the pulmonary parenchyma demonstrates end stage pulmonary fibrosis and emphysema. The re is diffuse honeycombing bilaterally. There is extensive infiltrate throughout nearly the entire ri ght lung more significant in the right middle and this could suggest a possible superimposed pneumoni a. There are small bilateral effusions larger on the left than the right. Note is made of a 4.0 x 1.4 cm calcified mass in the posterior aspect of the right upper lobe. There are advanced COPD changes. The limited portions of upper abdomen visualized is unremarkable. There degenerative changes within the spine. lower lobe than the right upper lobe. CONCLUSION: 1. No pulmonary embolus identified. 2. End stage pulmonary fibrosis with diffuse infiltrate throughout the right middle and right lower l obe. This would be concerning for superimposed pneumonia. 3. Small bilateral effusions larger on the left than the right. The effusion on the left appears locu lated. 4. 4.0 x 1.4 cm benign calcified mass on the right. Edwin Da Silva MD on June 06, 2017 at 15:58 Board Certified Radiologist. This report was verified electronically.
[2017-06-06] MEDS ORDERED: LEVOFLOXACIN 750 MG PREMIX INJ 150 ML IV ONE (16:30)
[2017-06-06] MEDS ORDERED: CEFEPIME INJ 1,000 MG in SODIUM CHLORIDE 0.9% INJ 100 ML IV ONE (16:30)
[2017-06-06 17:00] VITALS: BP 140/63; PULSE 102; RESP 16; O2SAT 94
--- NOTE | 2017-06-06 18:03 | PD ---
HPI Chief Complaint: Respiratory Symptoms Time Seen by Provider: 13:59 Travel History International Travel<30 days: No Contact w/Intl Traveler<30days: No Traveled to known affect area: No History of Present Illness HPI Patient is a 82 year old female who comes in due to hemoptysis. She was just discharged from the hospital after being treated for pneumonia and hypercapnia. She has extensive lung issues and wears home oxygen chronically. She says she was feeling fine until this morning she bent over and a lot of thin bloody liquid came out. She has about half a capful. She denies any increased shortness of breath. She says she is still coughing up sputum streaked with blood. She denies fever chills. She is not on any home antibiotics. She has had some increased swelling of both of her legs, but denies any calf pain. She is on Eliquis. Severity is moderate. PFSH Past Medical History Hx Anticoagulant Therapy: Yes (ELOQUIS) Arthritis: Yes (BILAT HANDS) Asthma: No Atrial Fibrillation: Yes Autoimmune Disease: No Anxiety: Yes Depression: No Heart Rhythm Problems: No Cancer: No Cardiovascular Problems: Yes (AFIB) High Cholesterol: Yes Chest Pain: No Congestive Heart Failure: No COPD: Yes Endocrine: No Gastrointestinal Disorders: Yes (esophageal stricture) GERD: No Genitourinary: No Hiatal Hernia: No Hypertension: Yes Immune Disorder: No Musculoskeletal: Yes Neurologic: No Psychiatric: No Reproductive: No Respiratory: Yes Sleep Apnea: No Ulcer: Yes Past Surgical History Abdominal Surgery: No Appendectomy: Yes Body Medical Devices: coil Cardiac Surgery: No Ear Surgery: No Endocrine Surgery: No Eye Surgery: No Genitourinary Surgery: No Gynecologic Surgery: No Hysterectomy: Yes Oral Surgery: No Thoracic Surgery: Yes (COIL SURGERY) Tonsillectomy: Yes Other Surgery: Yes (pluradesis x2, coil in abd cavity (experimental)) Social History Alcohol Use: Yes (moderately) Tobacco Use: No Substance Use: No Allergies-Medications (Allergen,Severity, Reaction): Coded Allergies: No Known Drug Allergies (Verified Allergy, Unknown, 06/06/17) Reported Meds & Prescriptions Reported Meds & Active Scripts Active Reported Doxycycline 40 Mg Cap 100 Mg PO EVERY OTHER DAY Protonix (Pantoprazole Sodium) Unknown Strength Tab 1 Tab PO BID Xanax (Alprazolam) 0.25 Mg Tab 0.25 Mg PO Q8H PRN Vasotec (Enalapril Maleate) 5 Mg Tab 5 Mg PO BID Norvasc (Amlodipine Besylate) 5 Mg Tab 5 Mg PO DAILY Flecainide (Flecainide Acetate) 50 Mg Tab 50 Mg PO BID Zocor (Simvastatin) 10 Mg Tab 10 Mg PO HS Eliquis (Apixaban) 2.5 Mg Tab 2.5 Mg PO BID Review of Systems Except as stated in HPI: all other systems reviewed are Neg General / Constitutional: No: Fever, Chills Eyes: No: Blurred Vision HENT: No: Headaches, Lightheadedness Cardiovascular: No: Chest Pain or Discomfort Respiratory: Positive: Cough, Shortness of Breath, Hemoptysis Gastrointestinal: No: Nausea, Vomiting Musculoskeletal: No: Myalgias Skin: No Rash, No Change in Pigmentation Neurologic: No: Dizziness Physical Exam Narrative GENERAL: Awake and alert, in no acute distress. SKIN: Focused skin assessment warm/dry. No wounds or signs of infection. HEAD: Atraumatic. Normocephalic. EYES: Pupils equal and round. No scleral icterus. ENT: Mucous membranes pink and moist. NECK: Trachea midline. No JVD. CARDIOVASCULAR: Regular rate and rhythm. No murmur appreciated. RESPIRATORY: Mild tachypnea and accessory muscle use. Crackles at both lung bases. Breath sounds equal bilaterally. GASTROINTESTINAL: Abdomen soft, non-tender, nondistended. Hepatic and splenic margins not palpable. MUSCULOSKELETAL: No obvious deformities. No clubbing. No cyanosis. No edema. NEUROLOGICAL: Awake and alert. No obvious cranial nerve deficits. Motor grossly within normal limits. Normal speech. PSYCHIATRIC: Appropriate mood and affect; insight and judgment normal. Data Data Last Documented VS Vital Signs Date Time Temp Pulse Resp B/P (MAP) Pulse Ox O2 Delivery O2 Flow Rate FiO2 06/06/17 17:00 102 16 140/63 (88) 94 Nasal Cannula 4.00 06/06/17 12:40 99.4 Orders Orders Complete Blood Count With Diff (06/06/17 12:46) Basic Metabolic Panel (Bmp) (06/06/17 12:46) B-Type Natriuretic Peptide (06/06/17 12:46) Act Partial Throm Time (Ptt) (06/06/17 12:46) Prothrombin Time / Inr (Pt) (06/06/17 12:46) Magnesium (Mg) (06/06/17 12:46) Ckmb (Isoenzyme) Profile (06/06/17 12:46) Troponin I (06/06/17 12:46) Electrocardiogram (06/06/17 12:46) Chest, Pa & Lat (06/06/17 12:46) Influenzae A/B Antigen (06/06/17 12:46) Ct Pulmonary Angiogram (06/06/17 14:10) Sputum Culture And Gram Stain (06/06/17 14:23) Iohexol 350 Inj (Omnipaque 350 Inj) (06/06/17 12:39) Levofloxacin 750 Mg Premix Inj (Levaquin (06/06/17 16:30) Cefepime Inj (Maxipime Inj) (06/06/17 16:30) Diet Regular Basic (06/06/17 Dinner) Ipratropium Neb (Atrovent Neb) (06/06/17 20:00) Levofloxacin (Levaquin) (06/07/17 09:00) Admit Order (Ed Use Only) (06/06/17 ) Labs Laboratory Tests Test 06/06/17 13:37 White Blood Count 9.7 TH/MM3 Red Blood Count 3.86 MIL/MM3 Hemoglobin 11.3 GM/DL Hematocrit 34.5 % Mean Corpuscular Volume 89.5 FL Mean Corpuscular Hemoglobin 29.3 PG Mean Corpuscular Hemoglobin Concent 32.7 % Red Cell Distribution Width 14.1 % Platelet Count 365 TH/MM3 Mean Platelet Volume 8.2 FL Neutrophils (%) (Auto) 79.3 % Lymphocytes (%) (Auto) 9.2 % Monocytes (%) (Auto) 9.9 % Eosinophils (%) (Auto) 1.3 % Basophils (%) (Auto) 0.3 % Neutrophils # (Auto) 7.7 TH/MM3 Lymphocytes # (Auto) 0.9 TH/MM3 Monocytes # (Auto) 1.0 TH/MM3 Eosinophils # (Auto) 0.1 TH/MM3 Basophils # (Auto) 0.0 TH/MM3 CBC Comment DIFF FINAL Differential Comment Prothrombin Time 9.4 SEC Prothromb Time International Ratio 0.9 RATIO Activated Partial Thromboplast Time 23.1 SEC Blood Urea Nitrogen 12 MG/DL Creatinine 0.29 MG/DL Random Glucose 117 MG/DL Calcium Level 8.6 MG/DL Magnesium Level 2.0 MG/DL Sodium Level 133 MEQ/L Potassium Level 4.2 MEQ/L Chloride Level 89 MEQ/L Carbon Dioxide Level 44.5 MEQ/L Anion Gap -1 MEQ/L Estimat Glomerular Filtration Rate 222 ML/MIN Total Creatine Kinase 32 U/L Troponin I LESS THAN 0.02 NG/ML B-Type Natriuretic Peptide 124 PG/ML MDM Medical Decision Making Medical Screen Exam Complete: Yes Emergency Medical Condition: Yes Medical Record Reviewed: Yes Interpretation(s) ECG shows sinus rhythm at 99 ST elevation or depression, normal intervals. Differential Diagnosis Pneumonia versus PE versus mass Narrative Course Patient is an 82-year-old female who comes in due to hemoptysis. Exam shows crackles at both lung bases. IV established, labs sent. Labs show no acute abnormalities. CTA of the chest performed shows no evidence of PE, however there is infiltrates present in both lungs as well as pleural effusions. Patient covered with cefepime and Levaquin. Sputum sample sent. Dr. Abiel Dobbins is aware of his patient being here. Last [address] Angiography 06/06/17 1410 Signed Impressions: Service Date/Time: Tuesday, June 06, 2017 15:27 - CONCLUSION: 1. No pulmonary embolus identified. 2. End stage pulmonary fibrosis with diffuse infiltrate throughout the right middle and right lower lobe. This would be concerning for superimposed pneumonia. 3. Small bilateral effusions larger on the left than the right. The effusion on the left appears loculated. 4. 4.0 x 1.4 cm benign calcified mass on the right. Edwin Da Silva MD Chest X-Ray 06/06/17 1246 Signed Impressions: Service Date/Time: Tuesday, June 06, 2017 13:12 - CONCLUSION: Improving bibasilar consolidations and small effusions. Underlying chronic interstitial fibrotic change. Bhaskar Meyers Jr., MD She will be admitted for further management. Diagnosis Primary Impression: Pneumonia Qualified Codes: J18.9 - Pneumonia, unspecified organism Additional Impression: Hemoptysis Admitting Information Admitting Physician Requests: Admit Sarah Petersen MD Jun 06, 2017 18:03
[2017-06-06] MEDS ORDERED: SODIUM CHLORIDE 0.9% FLUSH 10 ML FLUSH IV FLUSH PRN (18:30)
--- NOTE | 2017-06-06 18:31 | HHI.HP ---
[facility] Service Family Medicine Primary Care Physician Miguel Washington M.D. Admission Diagnosis Hemoptysis, pneumonia Diagnoses: International Travel<30 Days: No Contact w/Intl Traveler<30days: No Known Affected Area: No History of Present Illness Patient is an 82-year-old female with past history of lymphangioleiomyomatosis, chylous effusions, A. fib, hypertension presenting today with coughing up blood. She had recently left the hospital approximately 2 days ago following treatment for suspected pneumonia. Today she coughed up what she describes as watery blood. It happened in the morning one time, was a small handful of blood , was watery, bright red, no clots. She has not had any further episodes since then. She has noted several episodes of epistaxis recently. Denies lightheadedness, dizziness, headache, weakness. She called her optical scientist Dr. dobbins today who advised her to come in. Complains of additional shortness of breath, greater than baseline, productive cough. She is typically on 4 L/min O2 during the day, 2-3 L/m at night. Denies nausea, vomiting, fever, chills, abdominal pain, change in bowel or bladder habits. Review of Systems Constitutional: DENIES: Fatigue, Fever, Chills, Dizziness, Night Sweats Endocrine: DENIES: Polydipsia, Polyuria Eyes: DENIES: Blurred vision, Diplopia, Eye inflammation, Eye pain, Vision loss , Photosensitivity, Double Vision Ears, nose, mouth, throat: COMPLAINS OF: Epistaxis (occasional), DENIES: Tinnitus, Hearing loss, Vertigo, Throat pain, Hoarseness, Ear Pain, Running Nose Respiratory: COMPLAINS OF: Cough, Hemoptysis, Sputum production, Shortness of breath (Increased from baseline), DENIES: Apneas, Snoring Cardiovascular: DENIES: Chest pain, Palpitations, Syncope Gastrointestinal: DENIES: Abdominal pain, Black stools, Bloody stools, Constipation, Diarrhea, Nausea, Vomiting Genitourinary: DENIES: Urinary frequency, Hematuria, Dysuria Musculoskeletal: DENIES: Joint pain, Muscle aches, Back pain, Neck pain Integumentary: DENIES: Abnormal pigmentation, Rash Hematologic/lymphatic: DENIES: Bruising, Lymphadenopathy Immunologic/allergic: DENIES: Eczema, Urticaria Neurologic: DENIES: Abnormal gait, Headache Psychiatric: DENIES: Anxiety, Confusion Past Family Social History Past Medical History Afib TRAN GE stricture Meningioma anterior, frontal, 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 HTN HLD Past Surgical History Hysterectomy 1984 Pleurodesis of b/l lungs 1997 Coil in thoracic duct Allergies: Coded Allergies: No Known Drug Allergies (Verified Allergy, Unknown, 06/06/17) Family History Mother: at 63, liver and pancreas cancer Father: at 77, emphysema Social History EtOH: Occasionally Tobacco: none Drugs: None Flu, PNA vaccine in fall Physical Exam Vital Signs Vital Signs Date Time Temp Pulse Resp B/P (MAP) Pulse Ox O2 Delivery O2 Flow Rate FiO2 06/06/17 17:00 102 16 140/63 (88) 94 Nasal Cannula 4.00 06/06/17 14:05 95 Nasal Cannula 4.00 06/06/17 12:40 99.4 102 16 150/70 (96) 99 Nasal Cannula 2.00 Physical Exam GENERAL: This is a well-nourished, well-developed patient, in no apparent distress. SKIN: No rashes, ecchymoses or lesions. Cool and dry. HEAD: Atraumatic. Normocephalic. No temporal or scalp tenderness. EYES: Pupils equal round and reactive. Extraocular motions intact. No scleral icterus. No injection or drainage. ENT: Nose without bleeding, purulent drainage or septal hematoma. Throat without erythema, tonsillar hypertrophy or exudate. Uvula midline. Airway patent. Minimal dried blood in left nare. NECK: Trachea midline. No JVD or lymphadenopathy. Supple, nontender, no meningeal signs. CARDIOVASCULAR: Regular rate and rhythm without murmurs, gallops, or rubs. RESPIRATORY: Significant crackles in bilateral bases, right middle lobe, occasional wheezes heard. GASTROINTESTINAL: Abdomen soft, non-tender, nondistended. No hepato-splenomegaly , or palpable masses. No guarding. MUSCULOSKELETAL: Extremities without clubbing, cyanosis, or edema. No joint tenderness, effusion, or edema noted. No calf tenderness. Negative Homans sign bilaterally. NEUROLOGICAL: Awake and alert. Motor and sensory grossly within normal limits. Five out of 5 muscle strength in all muscle groups. Normal speech. Laboratory Laboratory Tests Test 06/06/17 13:37 White Blood Count 9.7 Red Blood Count 3.86 Hemoglobin 11.3 Hematocrit 34.5 Mean Corpuscular Volume 89.5 Mean Corpuscular Hemoglobin 29.3 Mean Corpuscular Hemoglobin Concent 32.7 Red Cell Distribution Width 14.1 Platelet Count 365 Mean Platelet Volume 8.2 Neutrophils (%) (Auto) 79.3 Lymphocytes (%) (Auto) 9.2 Monocytes (%) (Auto) 9.9 Eosinophils (%) (Auto) 1.3 Basophils (%) (Auto) 0.3 Neutrophils # (Auto) 7.7 Lymphocytes # (Auto) 0.9 Monocytes # (Auto) 1.0 Eosinophils # (Auto) 0.1 Basophils # (Auto) 0.0 CBC Comment DIFF FINAL Differential Comment Prothrombin Time 9.4 Prothromb Time International Ratio 0.9 Activated Partial Thromboplast Time 23.1 Blood Urea Nitrogen 12 Creatinine 0.29 Random Glucose 117 Calcium Level 8.6 Magnesium Level 2.0 Sodium Level 133 Potassium Level 4.2 Chloride Level 89 Carbon Dioxide Level 44.5 Anion Gap -1 Estimat Glomerular Filtration Rate 222 Total Creatine Kinase 32 Troponin I LESS THAN 0.02 B-Type Natriuretic Peptide 124 Date/Time Source Procedure Growth Status 06/06/17 15:13 Sputum Expectorated Sputum Gram Stain Pending Received 06/06/17 15:13 Sputum Expectorated Sputum Sputum Culture Pending Received Result Diagram: 06/06/17 1337 06/06/17 [address] Angiography 06/06/17 1410 Signed Impressions: Service Date/Time: Tuesday, June 06, 2017 15:27 - CONCLUSION: 1. No pulmonary embolus identified. 2. End stage pulmonary fibrosis with diffuse infiltrate throughout the right middle and right lower lobe. This would be concerning for superimposed pneumonia. 3. Small bilateral effusions larger on the left than the right. The effusion on the left appears loculated. 4. 4.0 x 1.4 cm benign calcified mass on the right. Edwin Da Silva MD Chest X-Ray 06/06/17 1246 Signed Impressions: Service Date/Time: Tuesday, June 06, 2017 13:12 - CONCLUSION: Improving bibasilar consolidations and small effusions. Underlying chronic interstitial fibrotic change. MD Stanley Lmoeli Jr. VTE Risk Assessment Caprini VTE Risk Assessment: Mod/High Risk (score >= 2) Caprini Risk Assessment Model Point Value = 1 Point Value = 2 Point Value = 3 Point Value = 5 Age 41-60 Minor surgery BMI > 25 kg/m2 Swollen legs Varicose veins or History of unexplained or recurrent spontaneous Oral contraceptives or hormone replacement Sepsis (< 1 month) Serious lung disease, including pneumonia (< 1 month) Abnormal pulmonary function Acute myocardial infarction Congestive heart failure (< 1 month) History of inflammatory bowel disease Medical patient at bed rest Age 61-74 Arthroscopic surgery Major open surgery (> 45 min) Laparoscopic surgery (> 45 min) Malignancy Confined to bed (> 72 hours) Immobilizing plaster cast Central venous access Age >= 75 History of VTE Family history of VTE Factor V Leiden Prothrombin [id number] Lupus anticoagulant Anticardiolipin antibodies Elevated serum homocysteine Heparin-induced thrombocytopenia Other congenital or acquired thrombophilia Stroke (< 1 month) Elective arthroplasty Hip, pelvis, or leg fracture Acute spinal cord injury (< 1 month) Prophylaxis Regimen Total Risk Factor Score Risk Level Prophylaxis Regimen 0-1 Low Early ambulation 2 Moderate Order ONE of the following: *Sequential Compression Device (SCD) *Heparin 5000 units SQ BID 3-4 Higher Order ONE of the following medications: *Heparin 5000 units SQ TID *Enoxaparin/Lovenox 40 mg SQ daily (WT < 150 kg, CrCl > 30 mL/min) *Enoxaparin/Lovenox 30 mg SQ daily (WT < 150 kg, CrCl > 10-29 mL/min) *Enoxaparin/Lovenox 30 mg SQ BID (WT < 150 kg, CrCl > 30 mL/min) AND/OR *Sequential Compression Device (SCD) 5 or more Highest Order ONE of the following medications: *Heparin 5000 units SQ TID (Preferred with Epidurals) *Enoxaparin/Lovenox 40 mg SQ daily (WT < 150 kg, CrCl > 30 mL/min) *Enoxaparin/Lovenox 30 mg SQ daily (WT < 150 kg, CrCl > 10-29 mL/min) *Enoxaparin/Lovenox 30 mg SQ BID (WT < 150 kg, CrCl > 30 mL/min) AND *Sequential Compression Device (SCD) Assessment and Plan Assessment and Plan Patient is an 82-year-old female with past history of lymphangioleiomyomatosis, chylous effusions, A. fib, hypertension who presented with hemoptysis and worsened shortness of breath. Likely pneumonia at this time. Problem List: (1) Pneumonia ICD Codes: J18.9 - Pneumonia, unspecified organism Status: Acute Plan: 82-year-old female with past history of lymphangioleiomyomatosis, chylous effusions, A. fib, hypertension who presented with shortness of breath and hemoptysis. Was in the hospital 2 days ago. Patient reports she's on BiPAP at home. Further reports her O2 saturation is typically in the low 90s to high 80s. We will be bringing in her own home BiPAP and using it settings. Had been seen by her optical scientist in the ED prior to interview, started on levaquin. Had received levaquin and cefepime while in the ED.. -Follow up blood culture, sputum culture -Levaquin 500 PO daily -cefepime 2000g q8 -Will need to touch base with Dr. Dobbins to help customize treatment for patients current presentation with her possibly confounding lymphangioleiomyomatosis -BiPAP per home settings -Follow up recommendations from patient's optical scientist, Dr. dobbins (2) Hemoptysis ICD Codes: R04.2 - Hemoptysis Status: Acute Plan: Small amount of blood in sputum. Currently without signs of anemia. Hemoglobin 11.3 on admission. - Monitor for signs of symptomatic blood loss - See plan for pneumonia (3) Afib ICD Codes: I48.91 - Unspecified atrial fibrillation Status: Chronic Plan: History of A. fib, reports currently well-controlled -Continue home medications -Flecainide 50 mg by mouth twice a day -Eliquis 2.5 mg by mouth twice a day (4) Hypertension ICD Codes: I10 - Essential (primary) hypertension Status: Chronic Plan: History of hypertension -Continue home medications enalapril 5 mg by mouth twice a day, Norvasc 5 mg by mouth daily (5) HLD (hyperlipidemia) ICD Codes: E78.5 - Hyperlipidemia, unspecified Status: Chronic Plan: Continue home medication -pravastatin 20 mg hs (6) FEN Plan: -Tolerating PO Electrolytes: -monitor and replete electrolytes as needed Nutrition: -Regular Diet PPX Currently on Eliquis Physician Certification 2 Midnight Certification Type: Admission for Inpatient Services Order for Inpatient Services The services are ordered in accordance with Medicare regulations or non- Medicare payer requirements, as applicable. In the case of services not specified as inpatient-only, they are appropriately provided as inpatient services in accordance with the 2-midnight benchmark. Estimated LOS (days): 2 2 days is the estimated time the patient will need to remain in the hospital, assuming treatment plan goals are met and no additional complications. Post-Hospital Plan: Home Problem Qualifiers (1) Pneumonia: Qualified Codes: J18.9 - Pneumonia, unspecified organism Milton Bella MD R1 Jun 06, 2017 18:31
[2017-06-06 19:00] VITALS: BP 143/66; PULSE 106; RESP 16
[2017-06-06] MEDS ORDERED: RESP: IPRATROPIUM 0.5 MG/2.5 ML NEB NEB SCH (20:00)
[2017-06-06] MEDS: PANTOPRAZOLE SOD 40 MG DELAYED RELEASE TAB PO SCH (20:15)
[2017-06-06] MEDS ORDERED: ALPRAZolam 0.25 MG TAB PO PRN (20:15)
[2017-06-06] MEDS ORDERED: PILL SPLITTER OTHER PRN (20:30)
[2017-06-06 20:42] VITALS: BP 131/69; PULSE 106; RESP 20; TEMP 98.5; O2SAT 92
[2017-06-06] MEDS: SODIUM CHLORIDE 0.9% FLUSH 10 ML FLUSH IV FLUSH SCH (21:00)
[2017-06-06] MEDS ORDERED: APIXABAN 2.5 MG TABLET PO SCH (21:00)
[2017-06-06] MEDS ORDERED: PRAVASTATIN SOD 20 MG TAB PO SCH (21:00)
--- NOTE | 2017-06-06 22:42 | MB ---
cc: Arpita HICKEY M.D. DATE OF CONSULTATION 06/06/2017 Pulmonary note HISTORY OF THE PRESENT ILLNESS Ms. Arroyo is an 82-year-old white female recently admitted here for suspected pneumonia superimposed on chronic TRAN. She is in chronic respiratory failure related to this oxygen-dependent but has been functioning quite well. During the last admission chest x-rays revealed bibasilar infiltrates right greater than left and she has had right lower lobe infiltrate in the past. Multiple cultures were done and serologies, influenza and other viruses, respiratory viruses were negative and sputum culture has been negative twice. Arterial blood gases prior to discharge on 3 liters, the pO2 is 67 with a pH 7.36, pCO2 of 78. Her baseline pCO2 has been about 65. She is on chronic BiPap. She went home feeling much better, although quite weak and debilitated. However, her called today and told me that she was spitting up blood. He was concerned and estimated there could have been a quarter of a cup of blood. For this reason I had her come back in the emergency room. At the time of this report she is awake, alert, has had no significant hemoptysis here in the last few hours in the emergency room. Temperature is mildly elevated at 99.4 and her O2 sat is 95-99% on 4 liters which she has been using at home. LABORATORY DATA White count is 9000. Sodium is 133. BNP is 124. Bicarb is elevated at 44. Coag profile is normal. I should mention that she has been on Eliquis for a history of paroxysmal atrial fibrillation. Obviously that is being held at present and her EKG on presentation is normal sinus rhythm. She had a CT scan today which reveals no embolism with a lot of chronic changes, multiple cysts related to her capital TRAN and a more dense infiltrate in the right lower lobe still suspicious for pneumonia although we have not been able to identify an organism at this point. Nothing there to suspect significant bleeding. In fact her plain film of her chest compared to the previous admission is a little clearer. I was able to bring up last year's films though and there is clearly more of an infiltrate at the right base raising the concern that in fact she has had a recent pneumonia. For review of prior history and additional information, please review my consultation from last week. PHYSICAL EXAMINATION VITAL SIGNS: 99, 150/70, respirations 18, pulse 100, O2 sat 95%. HEENT: Mucous membranes are moist. NECK: The neck veins are flat. LUNGS: She has rales at the right posterior base more prominent than that the left. No wheezes, no congestion. CARDIOVASCULAR: Regular heart rhythm. No harsh murmur. EXTREMITIES: A little ankle edema bilateral. No calf tenderness. No cyanosis. DISCUSSION Ms. Arroyo presents back to the emergency room today with what sounded as though with significant hemoptysis, although she has had none here now. Will hold her Eliquis obviously. I am going to go ahead and put her on Levaquin. I am concerned that she has had a recent pneumonia in that right lower lobe which is probably the site of bleeding, and we will continue her Atrovent nebulizations too as they helped clear her congestion and improve her oxygenation. I would suggest we observe her for the next 12-24 hours, if she has no recurrence of hemoptysis she could go home. Further diagnostic and/or therapeutic intervention will depend on her ongoing clinical course here. R. Abiel Hickey MD RSVane/KK /5:00 PM /10:29 PM
[2017-06-06] MEDS: ENALAPRIL MALEATE 5 MG TAB PO SCH (22:49)
[2017-06-06] MEDS: FLECAINIDE ACETATE 100 MG TAB PO SCH (22:49)
[2017-06-07] VITALS: BP 133/62; PULSE 94; RESP 18; TEMP 97.3; O2SAT 96
[2017-06-07] MEDS: CEFEPIME INJ 2,000 MG in SODIUM CHLORIDE 0.9% INJ 100 ML IV SCH ×2 (02:35→09:28)
[2017-06-07 08:00] VITALS: BP 130/62; PULSE 88; RESP 20; TEMP 97.6; O2SAT 97
[2017-06-07 08:03] VITALS: O2SAT 90
[2017-06-07] MEDS ORDERED: amLODIPine BESYLATE 5 MG TAB PO SCH (09:00)
[2017-06-07] MEDS ORDERED: LEVOFLOXACIN 500 MG TAB PO SCH (09:00)
[2017-06-07] MEDS: PANTOPRAZOLE SOD 40 MG DELAYED RELEASE TAB PO SCH (09:27)
[2017-06-07] MEDS: ENALAPRIL MALEATE 5 MG TAB PO SCH (09:28)
[2017-06-07] MEDS: SODIUM CHLORIDE 0.9% FLUSH 10 ML FLUSH IV FLUSH SCH (09:28)
[2017-06-07 12:00] VITALS: BP 108/59; PULSE 105; RESP 20; TEMP 98.2; O2SAT 90
[2017-06-07] MEDS: FLECAINIDE ACETATE 100 MG TAB PO SCH (13:16)
--- NOTE | 2017-06-07 14:06 | HHI.FPPN ---
Subjective Remarks Patient seen and examined this morning. No acute events overnight. She reports her breathing is stable. Still coughing up watery mucus, slightly blood-tinged. She states it is improving. Denies any new chest pain or worsening difficulty breathing. Otherwise, denies any fever/chills, nausea/vomiting, abdominal pain, leg pain. (Kunal Chand MD) Objective Vitals Vital Signs Date Time Temp Pulse Resp B/P (MAP) Pulse Ox O2 Delivery O2 Flow Rate FiO2 06/07/17 12:00 98.2 105 20 108/59 (75) 90 06/07/17 08:03 90 Nasal Cannula 4.00 06/07/17 08:00 97.6 88 20 130/62 (84) 97 06/07/17 00:00 97.3 94 18 133/62 (85) 96 06/06/17 20:42 98.5 106 20 131/69 (89) 92 06/06/17 19:00 106 16 143/66 (91) Nasal Cannula 4.00 06/06/17 17:00 102 16 140/63 (88) 94 Nasal Cannula 4.00 06/06/17 14:05 95 Nasal Cannula 4.00 I/O 06/06/17 06/06/17 06/06/17 06/07/17 06/07/17 06/07/17 07:00 15:00 23:00 07:00 15:00 23:00 Intake Total 250 ml 100 ml Balance 250 ml 100 ml Intake IV Total 250 ml 100 ml # Voids 1 # Bowel Movements 0 (Kunal Chand MD) Result Diagram: 06/06/17 1337 06/06/[address] Angiography 06/06/17 1410 Signed Impressions: Service Date/Time: Tuesday, June 06, 2017 15:27 - CONCLUSION: 1. No pulmonary embolus identified. 2. End stage pulmonary fibrosis with diffuse infiltrate throughout the right middle and right lower lobe. This would be concerning for superimposed pneumonia. 3. Small bilateral effusions larger on the left than the right. The effusion on the left appears loculated. 4. 4.0 x 1.4 cm benign calcified mass on the right. Edwin Da Silva MD Chest X-Ray 06/06/17 1246 Signed Impressions: Service Date/Time: Tuesday, June 06, 2017 13:12 - CONCLUSION: Improving bibasilar consolidations and small effusions. Underlying chronic interstitial fibrotic change. Bhaskar Meyers Jr., MD Objective Remarks GENERAL: Sitting up in bed, NAD, eating lunch SKIN: Warm and dry. CARDIOVASCULAR: Regular rate and rhythm. RESPIRATORY: Occasional wheezing throughout. Crackles in bases. GASTROINTESTINAL: Abdomen soft, non-tender, nondistended. Hepatic and splenic margins not palpable. MUSCULOSKELETAL: Extremities without clubbing, cyanosis, or edema. No obvious deformities. NEUROLOGICAL: Awake and alert. Normal speech. (Kunal Chand MD) A/P Assessment and Plan Patient is an 82-year-old female with past history of lymphangioleiomyomatosis, chylous effusions, A. fib, hypertension who presented with hemoptysis and worsened shortness of breath. Likely pneumonia at this time. Discharge Planning Pending pulmonology workup (Kunal Chand MD) Attending Attestation Patient interviewed Exam performed Case discussed in detail with Dr Chand and Dr Luque Agree with contents of note See Orders (Calin Arteaga MD) Problem List: (1) Pneumonia ICD Codes: J18.9 - Pneumonia, unspecified organism Status: Acute Plan: 82-year-old female with past history of lymphangioleiomyomatosis, chylous effusions, A. fib, hypertension who presented with shortness of breath and hemoptysis. Was in the hospital 2 days before admission. Patient reports she 's on BiPAP at home. Further reports her O2 saturation is typically in the low 90s to high 80s. We will be bringing in her own home BiPAP and using it settings. -Levaquin 500 PO daily -Cefepime 2000g q8 -Pulmonology aware-Dr. Dobbins -Monitor hemoptysis -Spoke with Dr. Dbobins, who recommends d/c patient with 5 days of Levaquin and f/u outpatient -BiPAP per home settings (2) Hemoptysis ICD Codes: R04.2 - Hemoptysis Status: Acute Plan: Small amount of blood in sputum. Currently without signs of anemia. Hemoglobin 11.3 on admission. - Monitor for signs of symptomatic blood loss - Hold Eliquis - See plan for pneumonia (3) Afib ICD Codes: I48.91 - Unspecified atrial fibrillation Status: Chronic Plan: History of A. fib, reports currently well-controlled -Continue home medications -Flecainide 50 mg by mouth twice a day -Hold Eliquis due to hemoptysis (4) Hypertension ICD Codes: I10 - Essential (primary) hypertension Status: Chronic Plan: History of hypertension -Continue home medications enalapril 5 mg by mouth twice a day, Norvasc 5 mg by mouth daily (5) HLD (hyperlipidemia) ICD Codes: E78.5 - Hyperlipidemia, unspecified Status: Chronic Plan: Continue home medication -pravastatin 20 mg hs (6) FEN Plan: -Tolerating PO Electrolytes: -monitor and replete electrolytes as needed Nutrition: -Regular Diet PPX-Hold eliquis due to hemoptysis; SCDs (Kunal Chand MD) Problem Qualifiers (1) Pneumonia: Qualified Codes: J18.9 - Pneumonia, unspecified organism (2) Afib: Qualified Codes: I48.2 - Chronic atrial fibrillation (3) Hypertension: Qualified Codes: I10 - Essential (primary) hypertension (4) HLD (hyperlipidemia): Qualified Codes: E78.2 - Mixed hyperlipidemia Kunal Chand MD Jun 07, 2017 14:06 Calin Arteaga MD Jun 07, 2017 18:19
--- NOTE | 2017-06-07 15:55 | HHI.DCPOC ---
Discharge Care Plan Diagnosis: (1) Lymphangioleiomyomatosis (2) Pneumonia (3) Shortness of breath Goals to Promote Your Health * To prevent worsening of your condition and complications * To maintain your health at the optimal level Directions to Meet Your Goals Take your medications as prescribed Follow your dietary instruction Follow activity as directed Keep your appointments as scheduled Take your immunizations and boosters as scheduled If your symptoms worsen call your PCP, if no PCP go to Urgent Care Center or Emergency Room Smoking is Dangerous to Your Health. Avoid second hand smoke Call the 24-hour hour crisis hotline for domestic abuse at Kunal Chand MD Jun 07, 2017 15:55
[2017-06-07 16:00] VITALS: BP 121/58; PULSE 103; RESP 20; TEMP 98.7; O2SAT 90
--- NOTE | 2017-06-07 18:49 | EKG ---
Date Performed: 06/06/2017 Time Performed: 13:33:24 PTAGE: 82 years EKG: Sinus rhythm LEFT ATRIAL ENLARGEMENT POSSIBLE LEFT VENTRICULAR HYPERTROPHY ABNORMAL ECG Since the prior tracing, there has been no significant change PREVIOUS TRACING : 05/30/2017 17.39 DOCTOR: Daisha Garcia Interpretating Date/Time 06/07/2017 18:45:37
--- NOTE | 2017-06-07 22:44 | MD ---
cc: CHIP GARCIA R. STEVEN ADMISSION DATE: 06/06/2017 DISCHARGE DATE: 06/07/2017 HISTORY Ms. Arroyo is an 82-year-old white female well-known to me with chronic lung disease and TRAN. She was recently hospitalized for a right lower lobe infiltrate, probable pneumonia although all cultures and serologies were negative. She went home at the end of last week. She was stable and she has been on Eliquis for paroxysmal atrial fibrillation. She called my office Tuesday with what sounded like significant hemoptysis so I brought her into the emergency room. Her chest x-ray actually looked better but her CT scan clearly continues to show an infiltrate in the right base so we readmitted her for observation. Eliquis was discontinued. She has been stable over the last 24 hours, afebrile, O2 sats are ranging 90-97 on 4 liters which is her baseline and she has had no recurrent hemoptysis. What she has done, however, is had some reflux and the story that she gives me now is that she was bending over picking some ocasio when this fluid came up from what she thought was her chest, although it may have been her stomach and it seemed to have some pink in it. Some of the fluid that she brought up overnight is pink but there is no fredo blood. It is certainly possible that rather than having pink stained fluid from her chest yesterday was from her stomach. There is no history of ulcer disease. She has never had active GI bleeding but again it warrants holding her Eliquis at present, particularly since she is in sinus rhythm. She will go home today in light of the CT findings and the persistent cough with congestion. I am going to give her an additional 5 days of Levaquin. She will continue her probiotic, her oxygen, her Atrovent nebulization at least once a day and her BiPap for sleep. Will have her see Dr. Garcia back when she has recovered from this and see whether or not Eliquis is even indicated any longer since her atrial fibrillation seems to be controlled and she is in sinus rhythm. I will see her back in the office next week. She will call if problems arise prior to that. R. MD ARELIS Veras/EBER /12:35 PM /10:21 PM
== END 2017-06-07 16:36 | disposition home or self-care (01) | DRG 193 ==
LOC: NEPE 12:38 → NEDA 17:35 → N04B 20:48
PROVIDERS: ADMIT Family Medicine; ATTEND Family Medicine
DX: J18.9 Pneumonia, unspecified organism (principal); J84.81 Lymphangioleiomyomatosis; J90 Pleural effusion, not elsewhere classified; J44.0 Chronic obstructive pulmonary disease with (acute) lower respiratory infection; J96.10 Chronic respiratory failure, unspecified whether with hypoxia or hypercapnia; R04.2 Hemoptysis; I48.0 Paroxysmal atrial fibrillation; M19.90 Unspecified osteoarthritis, unspecified site; F41.9 Anxiety disorder, unspecified; I10 Essential (primary) hypertension; K21.9 Gastro-esophageal reflux disease without esophagitis; E78.2 Mixed hyperlipidemia; Z99.81 Dependence on supplemental oxygen; Z79.01 Long term (current) use of anticoagulants
CPT/HCPCS: 71046; 71275; 80048; 82550; 83735; 83880; 84484; 85025; 85610; 85730; 87040; 87070; 87205; 87804; 93005; 94664; 96374; 96375; J0692; J1956; J7644; Q9967